=== PATIENT | male | born 1965 | race Caucasian/White ===

== ENCOUNTER 2024-06-29 18:59 | Inpatient (IN) | payer OTHER ==
[2024-06-29] MEDS ORDERED: KETOROLAC 15 MG/ML 1 ML VIAL ONE (20:50)
[2024-06-29] MEDS ORDERED: SODIUM CHLORIDE 0.9% 1,000 ML BAG ONE (20:55)
[2024-06-30] MEDS ORDERED: HYDROmorphone 1 MG/ML 1 ML SYRINGE ONE (14:28)
[2024-06-30] MEDS ORDERED: ONDANSETRON 4 MG/2 ML VIAL ONE (14:28)
[2024-06-30] MEDS ORDERED: SODIUM CHLORIDE 0.9% 1,000 ML BAG ONE (14:35)
[2024-06-30] MEDS ORDERED: NICOTINE 21MG/24HR PATCH TRANSDERM ONE (15:42)
[2024-06-30] MEDS ORDERED: AMPICILLIN-SULBACTAM 3 GM VIAL ONE (19:50)
[2024-06-30] MEDS ORDERED: SODIUM CHLORIDE 0.9% 100 ML BAG IV ONE (19:50)
[2024-07-01] MEDS ORDERED: AMPICILLIN-SULBACTAM 3 GM VIAL ONE ×3 (03:59→20:52)
[2024-07-01] MEDS ORDERED: MORPHINE SULFATE 4 MG/ML SYRINGE ONE ×2 (06:27→18:10)
[2024-07-01] MEDS ORDERED: NICOTINE 21MG/24HR PATCH TRANSDERM ONE (09:25)
[2024-07-01] MEDS ORDERED: PANTOPRAZOLE 40 MG/10 ML VIAL ONE (09:46)
[2024-07-01] MEDS ORDERED: metroNIDAZOLE-NS PMX 100 ML ONE ×2 (15:53→20:53)
[2024-07-02] MEDS ORDERED: metroNIDAZOLE-NS PMX 100 ML ONE (05:05)
[2024-07-02] MEDS ORDERED: AMPICILLIN-SULBACTAM 3 GM VIAL ONE (08:45)
[2024-07-02] MEDS ORDERED: PANTOPRAZOLE 40 MG/10 ML VIAL ONE (08:45)
[2024-07-02] MEDS ORDERED: NICOTINE 21MG/24HR PATCH TRANSDERM ONE (08:45)
--- NOTE | 2024-07-21 13:45 | CT ---
EXAM: CT abdomen pelvis with IV contrast. DATE OF EXAM: 06/30/24 Reason for study: PUNCTURE IN COLON LEAKING INTO ABDOMEN PER PATIENT, PATIENT HAD RENAL STONE CT YEST ERDAY, ABD PAIN DLP: 875.9 [id number] COMPARISON: None, please note PACS downtime occurred during the radiologist interpretation of these i mages with limited priors/reports.. TECHNIQUE: CT abdomen pelvis with IV contrast. with axial imaging and sagittal and coronal reformats following t he administration of 100 cc of Isovue-300 IV contrast material.. One or more CT dose reduction strate gies were utilized during this examination. Total DLP administered was 875.9 mGycm. FINDINGS: LOWER CHEST: Unremarkable ABDOMEN LIVER: Unremarkable GALLBLADDER AND BILE DUCTS: Unremarkable. PANCREAS: Unremarkable. SPLEEN: Unremarkable. ADRENAL GLANDS: Unremarkable. KIDNEYS AND URETERS: No evidence of hydronephrosis or renal calculus. The ureters are unremarkable. PELVIS BLADDER: Unremarkable REPRODUCTIVE: Unremarkable. ABDOMEN & PELVIS STOMACH AND BOWEL: Fat stranding changes are seen on the sigmoid colon with circumferential wall thic kening measuring up to 12 mm. Multiple scattered colonic diverticula in this region. There is a pocke t of gas outside the colon measuring up to 30 x 15 x 17 mm. With adjacent inflammation changes. PERITONEUM: No evidence of pneumoperitoneum or free fluid. VASCULATURE: Mild atherosclerotic calcifications are present throughout the abdominal aorta and its b ranches. MUSCULOSKELETAL: No acute osseous abnormalities LYMPH NODES: No gross evidence for lymphadenopathy. SOFT TISSUE/ABDOMINAL WALL: Unremarkable IMPRESSION: Acute diverticulitis/colitis with perforation with pocket of gas outside the colon measuring up to 30 x 15 x 17 mm.
--- NOTE | 2024-08-01 09:06 | CT ---
EXAM: CT Abdomen and Pelvis Without Intravenous Contrast CLINICAL HISTORY: lower abdominal pain TECHNIQUE: Axial computed tomography images of the abdomen and pelvis without intravenous contrast. CTDI is 8.1 mGy and DLP is 479.6 mGy-cm. This CT exam was performed using one or more of the following dose reduction techniques: automated exposure control, adjustment of the mA and/or kV according to patient size, and/or use of iterative reconstruction technique. COMPARISON: No relevant prior studies available. FINDINGS: Lung bases:Unremarkable. No mass. No consolidation. ABDOMEN: Liver:Unremarkable. Gallbladder and bile ducts:Unremarkable. No calcified stones. No ductal dilation. Pancreas:Unremarkable. No ductal dilation. Spleen:Unremarkable. No splenomegaly. Adrenals:Unremarkable. No mass. Kidneys and ureters:Unremarkable. No obstructing stones. No hydronephrosis. Stomach and bowel: Perforated colitis of the sigmoid colon, with contained air collection measuring approximately4.3 x 4.0 cm. Surgical evaluation recommended. No obstruction. PELVIS: Appendix:No findings to suggest acute appendicitis. Bladder:Unremarkable. No stones. Reproductive:Unremarkable as visualized. ABDOMEN and PELVIS: Intraperitoneal space:Unremarkable. No free air. No significant fluid collection. Bones/joints:Degenerative changes of the spine. No acute fracture. No dislocation. Soft tissues:Unremarkable. Vasculature:Atherosclerotic changes of the aorta. No abdominal aortic aneurysm. Lymph nodes:Unremarkable. No enlarged lymph nodes. IMPRESSION: Perforated colitis of the sigmoid colon, with contained air collection measuring approximately 4.3 x 4.0 cm. Surgical evaluation recommended. Radiologist: Jonathan Putnam MD Electronically Signed: 06/30/24 00:41 Study ready at 22:43 and initial results transmitted at 00:41 Results also transmitted to Film Room, Film Room @ [phone] (Fax) Communications: Communications: Clear Time Type Notes 06/30/24 00:44 Call Doctor Regarding Other, called Dr. Camarena on 06/30 00:44 (-04:00) RENETTA
== END 2024-07-02 14:24 | disposition home or self-care (01) | DRG 244 ==
LOC: EC 18:59 → 4SSUR 20:21 → UNDOADMIN 20:21 → DISRECOVER 21:21 → EC 06-30 00:55 → UNDODISIN 07-02 14:24
PROVIDERS: ADMIT Surgery; ATTEND Surgery
DX: K57.20 Diverticulitis of large intestine with perforation and abscess without bleeding (principal); F17.210 Nicotine dependence, cigarettes, uncomplicated; Z87.19 Personal history of other diseases of the digestive system; Z90.49 Acquired absence of other specified parts of digestive tract
CPT/HCPCS: 80053; 81003; 83605; 83690; 83735; 84100; 84484; 85025; 93005

== ENCOUNTER → 2024-07-28 | Outpatient (CLI) | payer OTHER ==
--- NOTE | 2024-07-28 12:40 | CT ---
EXAMINATION TYPE: CT abdomen pelvis w con DATE OF EXAM: 07/28/2024 COMPARISON: 06/30/2024 HISTORY: Hx diverticulitis CT DLP: 1182 mGycm Automated exposure control for dose reduction was used. TECHNIQUE: Helical acquisition of images was performed from the lung bases through the pelvis. CONTRAST: Performed with Oral Contrast and with IV Contrast, patient injected with 100 mL of Isovue 300. FINDINGS: The lung bases are clear. The gallbladder is normal without distention, wall thickening, pericholecystic fluid or gallstones. T here is no biliary ductal dilatation. There is no focal mass or organomegaly involving the liver, pancreas, spleen or adrenal glands. There is no solid renal mass or hydronephrosis and there is homogeneous contrast enhancement of the r enal parenchyma. The caliber the abdominal aorta is normal is no retroperitoneal adenopathy or hemorr юлия. There is moderate diverticulosis of the descending and sigmoid colon. There is sigmoid bowel wall thi ckening and hazy density in the pericolic fat. The findings are consistent with acute on chronic chol ecystitis. There has been no significant interval change compared to previous. There is no free intraperitoneal air or fluid. No pelvic mass, free fluid, abscess or adenopathy. The osseous structures and soft tissues are intact. IMPRESSION: Acute sigmoid diverticulitis as described above. There is no bowel obstruction, abscess, free intrape ritoneal air or fluid.
== END | disposition home or self-care (01) ==
LOC: RADCTMAIN 09:54
PROVIDERS: ATTEND Surgery
DX: K57.32 Diverticulitis of large intestine without perforation or abscess without bleeding (principal)
CPT/HCPCS: 74177

== ENCOUNTER 2024-08-25 16:23 | Inpatient (IN) | payer OTHER ==
--- NOTE | 2024-08-25 16:52 | ED ---
General Adult HPI - General Chief complaint: Recheck/Abnormal Lab/Rx Stated complaint: colon rupture Time Seen by Provider: 08/25/24 16:32 Source: patient Mode of arrival: ambulatory Limitations: no limitations - History of Present Illness Initial comments: Macro dictation was produced using [employer] dictation software. please excuse any grammatical, word or spelling errors. Chief Complaint: 59-year-old male with 1 day of abdominal pain History of Present Illness: Patient is 51-year-old male presents emergency department 1 day history of acute abdominal pain. Patient had been diagnosed with diverticulitis complicated by rupture and was admitted about a month ago states that the pain never really went away but really started to get bad today. Denies any fever. Pain is to his lower abdomen nonradiating. The ROS documented in this emergency department record has been reviewed and confirmed by me. Those systems with pertinent positive or negative responses have been documented in the HPI. All other systems are other negative and/or noncontributory. - Related Data Allergies Allergy/AdvReac Type Severity Reaction Status Date / Time No Known Allergies Allergy Verified 08/25/24 19:30 Review of Systems ROS Statement: Those systems with pertinent positive or pertinent negative responses have been documented in the HPI. ROS Other: All systems not noted in ROS Statement are negative. Past Medical History Additional Past Medical History / Comment(s): colon rupture. History of Any Multi-Drug Resistant Organisms: None Reported Past Surgical History: No Surgical Hx Reported Additional Past Surgical History / Comment(s): colon rupture Past Psychological History: No Psychological Hx Reported Smoking Status: Current every day smoker Past Alcohol Use History: None Reported Past Drug Use History: Marijuana General Exam - General Exam Comments Initial Comments: PHYSICAL EXAM: General Impression: Alert and oriented x3, distress secondary to pain HEENT: Normocephalic atraumatic, extra-ocular movements intact, pupils equal and reactive to light bilaterally, mucous membranes moist. Cardiovascular: Heart regular rate and rhythm Chest: Able to complete full sentences, no retractions, no tachypnea Abdomen: abdomen soft, exquisite palpatory tenderness to the lower abdomen non- distended, no organomegaly Musculoskeletal: Pulses present and equal in all extremities, no peripheral edema Motor: no focal deficits noted Neurological: CN II-XII grossly intact, no focal motor or sensory deficits noted Skin: Intact with no visualized rashes Psych: Normal affect and mood Limitations: no limitations Course Vital Signs 08/25/24 08/25/24 08/25/24 16:26 16:57 18:18 Temperature 97.4 F L Pulse Rate 109 H 94 84 Respiratory 20 18 18 Rate Blood Pressure 112/74 115/81 105/59 O2 Sat by Pulse 98 97 94 L Oximetry Medical Decision Making - Medical Decision Making Was pt. sent in by a medical professional or institution (, PA, DIRECTOR OF QUALITY CONTROL, urgent care, hospital, or correction...) When possible be specific @ -No Did you speak to anyone other than the patient for history (EMS, parent, family, police, friend...)? What history was obtained from this source @ - at the bedside as described above Did you review nursing and triage notes (agree or disagree)? Why? @ -I reviewed and agree with nursing and triage notes Were old charts reviewed (outside hosp., previous admission, EMS record, old EKG, old radiological studies, urgent care reports/EKG's, correction records)? Report findings @ -No old charts were reviewed Differential Diagnosis (chest pain, altered mental status, abdominal pain women, abdominal pain men, vaginal bleeding, musculoskeletal, weakness, fever, dyspnea, syncope, headache, dizziness, GI bleed, back pain, seizure, CVA, palpatations, mental health)? @ -Differential Abdominal Pain Men: Appendicitis, cholecystitis, diverticulosis, ischemic bowel, pancreatitis, hepatitis, UTI, gastroenteritis, AAA, incarcerated hernia, bowel obstruction, constipation, inflammatory bowel, hepatitis, peptic ulcer disease, splenic infarction, perforated viscus, testicular torsion, this is not meant to be an all-inclusive list EKG interpreted by me (3pts min.). @ -None done X-rays interpreted by me (1pt min.). @ -None done CT interpreted by me (1pt min.). @ -CT shows diverticulitis with phlegmon U/S interpreted by me (1pt. min.). @ -None done What testing was considered but not performed or refused? (CT, X-rays, U/S, labs)? Why? @ -None What meds were considered but not given or refused? Why? @ -None Was smoking cessation discussed for >3mins.? @ -No Were there social determinants of health that impacted care today? How? (Homelessness, low income, unemployed, alcoholism, drug addiction, transportation, low edu. Level, literacy, decrease access to med. care, assisted, rehab)? @ -No Was there de-escalation of care discussed even if they declined (Discuss DNR or withdrawal of care, Hospice)? DNR status @ -No What co-morbidities impacted this encounter? (DM, HTN, Smoking, COPD, CAD, Cancer, CVA, ARF, Chemo, Hep., AIDS, mental health diagnosis, sleep apnea, morbid obesity)? @ -None Was patient admitted / discharged? Hospital course, mention meds given and route, prescriptions, significant lab abnormalities, going to OR and other perti nent info. @ -51-year-old male recent diagnosis of acute diverticulitis presents to the ER for severe abdominal pain. Vital signs upon arrival are within acceptable limits. Patient distress at the bedside with exquisitely tender abdomen to palpation. Laboratory evaluation is unremarkable. CT shows diverticulitis complicated with phlegmon contained rupture patient given analgesics with slight improvement of symptoms however he still symptomatic. Disposition options were discussed. Patient agreeable with admission. Case discussed with who is willing to accept patient's care. Did you discuss the management of the patient with other professionals (professionals i.e. , PA, DIRECTOR OF QUALITY CONTROL, lab, RT, psych nurse, social welfare administrator, mannequin maker, teacher, human resources officer, case managers)? Give summary @ -See above Was critical care preformed (if so, how long)? @ -No Undiagnosed new problem with uncertain prognosis? @ -No Drug Therapy requiring intensive monitoring for toxicity (Heparin, Nitro, Insulin, Cardizem)? @ -No Were any procedures done? @ -No Diagnosis/symptom? Acute, or Chronic, or Acute on Chronic? Uncomplicated (without systemic symptoms) or Complicated (systemic symptoms)? @ -Acute on chronic complicated diverticulitis Side effects of treatment? @ -No Exacerbation, Progression, or Severe Exacerbation? @ -No Poses a threat to life or bodily function? How? (Chest pain, [place], [place], pneumonia, PE, COPD, DKA, ARF, appy, cholecystitis, CVA, Diverticulitis, Homicidal, Suicida l, threat to staff... and all critical care pts) @ -yes - Lab Data Result diagrams: 08/25/24 17:05 08/25/24 17:05 Lab Results 08/25/24 08/25/24 08/25/24 Range/Units 17:05 17:05 17:05 WBC 11.4 H (3.8-10.6) k/uL RBC 4.79 (4.30-5.90) m/uL Hgb 13.7 (13.0-17.5) gm/dL Hct 43.1 (39.0-53.0) % MCV 89.9 (80.0-100.0) fL MCH 28.6 (25.0-35.0) pg MCHC 31.8 (31.0-37.0) g/dL RDW 13.6 (11.5-15.5) % Plt Count 283 (150-450) k/uL MPV 7.2 Neutrophils % 80 % Lymphocytes % 14 % Monocytes % 4 % Eosinophils % 1 % Basophils % 1 % Neutrophils # 9.2 H (1.3-7.7) k/uL Lymphocytes # 1.6 (1.0-4.8) k/uL Monocytes # 0.4 (0-1.0) k/uL Eosinophils # 0.1 (0-0.7) k/uL Basophils # 0.1 (0-0.2) k/uL PT 11.4 (10.0-12.5) sec INR 1.0 (<1.2) APTT 26.2 (22.0-30.0) sec Sodium 136 L (137-145) mmol/L Potassium 3.9 (3.5-5.1) mmol/L Chloride 108 H (98-107) mmol/L Carbon Dioxide 22 (22-30) mmol/L Anion Gap 6 mmol/L BUN 14 (9-20) mg/dL Creatinine 0.72 (0.66-1.25) mg/dL Est GFR (CKD-EPI)AfAm >90 (>60 ml/min/1.73 sqM) Est GFR (CKD-EPI)NonAf >90 (>60 ml/min/1.73 sqM) Glucose 209 H (74-99) mg/dL Calcium 9.8 (8.4-10.2) mg/dL Total Bilirubin 0.5 (0.2-1.3) mg/dL AST 18 (17-59) U/L ALT 15 (4-49) U/L Alkaline Phosphatase 79 (38-126) U/L Total Protein 6.4 (6.3-8.2) g/dL Albumin 3.8 (3.5-5.0) g/dL Lipase 46 (23-300) U/L Disposition Clinical Impression: Diverticulitis Disposition: ADMITTED IP TO THIS [facility] Condition: Fair Referrals: Wade Krueger MD [Primary Care Provider] - 1-2 days Decision Time: 19:33
[2024-08-25] MEDS: SODIUM CHLORIDE 0.9% 1,000 ML IV STA (17:05)
[2024-08-25] MEDS: HYDROmorphone 1 MG/ML 1 ML SYRINGE IVP STA (17:06)
[2024-08-25] MEDS: NICOTINE 21MG/24HR PATCH TRANSDERM STA (17:07)
[2024-08-25 17:18] LABS: Basophils # (A) 0.1 k/uL (0-0.2); Basophils % (A) 1 %; Eosinophils # (A) 0.1 k/uL (0-0.7); Eosinophils % (A) 1 %; HCT 43.1 % (39.0-53.0); HGB 13.7 gm/dL (13.0-17.5); Lymphocytes # (A) 1.6 k/uL (1.0-4.8); Lymphocytes % (A) 14 %; MCH 28.6 pg (25.0-35.0); MCHC 31.8 g/dL (31.0-37.0); MCV 89.9 fL (80.0-100.0); Mean Platelet Volume 7.2; Monocytes # (A) 0.4 k/uL (0-1.0); Monocytes % (A) 4 %; Neutrophils # (A) 9.2 k/uL (1.3-7.7); Neutrophils % (A) 80 %; Platelet Count 283 k/uL (150-450); RBC 4.79 m/uL (4.30-5.90); RDW 13.6 % (11.5-15.5); WBC 11.4 k/uL (3.8-10.6)
[2024-08-25 17:37] LABS: ALT 15 U/L (4-49); AST 18 U/L (17-59); African American GFR (CKD) >90 (>60 ml/min/1.73 sqM); Albumin 3.8 g/dL (3.5-5.0); Alkaline Phosphatase 79 U/L (38-126); Anion Gap 6 mmol/L; Blood Urea Nitrogen 14 mg/dL (9-20); Calcium 9.8 mg/dL (8.4-10.2); Carbon Dioxide 22 mmol/L (22-30); Chloride 108 mmol/L (98-107); Glucose 209 mg/dL (74-99); Lipase 46 U/L (23-300); Non-African American GFR(CKD) >90 (>60 ml/min/1.73 sqM); Potassium 3.9 mmol/L (3.5-5.1); Sodium 136 mmol/L (137-145); Total Bilirubin 0.5 mg/dL (0.2-1.3); Total Protein 6.4 g/dL (6.3-8.2)
[2024-08-25 17:43] LABS: Partial Thromboplastin Time 26.2 sec (22.0-30.0); Prothrombin Time 11.4 sec (10.0-12.5)
--- NOTE | 2024-08-25 17:47 | CT ---
EXAMINATION TYPE: CT abdomen pelvis w con DATE OF EXAM: 08/25/2024 COMPARISON: 07/28/2024 HISTORY: Lower abdominal pain, colon rupture x [address] DLP: 762.1 mGycm CONTRAST: CT scan of the abdomen and pelvis is performed without Oral Contrast and with IV Contrast, patient in jected with 100 cc mL of Isovue 300. FINDINGS: LUNG BASES-: No visible nodule. No infiltrate. LIVER/GB: No calcified gallstones. No space occupying hepatic lesion. Biliary tree is of normal ca liber. PANCREAS: No inflammation. No distinct mass. SPLEEN: No splenic enlargement. No lesion seen. ADRENALS: No nodule. No thickening. KIDNEYS/BLADDER: No hydronephrosis. No nephrolithiasis. Renal cystic changes. Urinary bladder gross ly unremarkable. BOWEL: Normal appendix. Again noted are changes of acute diverticulitis of the sigmoid colon with con tained rupture and associated inflammatory change and phlegmon. No evidence for drainable abscess at this time. The remainder of the colon is unremarkable as is the small bowel. No evidence of pneumoper itoneum. GENITAL ORGANS: No gross abnormality. LYMPH NODES: No greater than 1cm abdominal or pelvic lymph nodes are appreciated. AORTA: No significant abnormality. OSSEOUS STRUCTURES: No significant abnormality is seen. OTHER: No significant additional abnormality is seen. IMPRESSION: 1. Again noted are changes of acute diverticulitis of the sigmoid colon with contained rupture and as sociated inflammatory change and phlegmon. No evidence for drainable abscess at this time. [facility], , 08/25/2024 5:44 PM
[2024-08-25] MEDS ORDERED: NALOXONE 0.4 MG/ML 1 ML VIAL IV PRN (19:29)
[2024-08-25] MEDS ORDERED: ONDANSETRON 4 MG/2 ML VIAL IVP PRN (19:29)
[2024-08-25] MEDS ORDERED: PIPERACILLIN-TAZOBACTAM 3.375 GM in SODIUM CHLORIDE 0.9% 100 ML IVPB SCH (19:30)
[2024-08-25] MEDS: SODIUM CHLORIDE 0.9% 1,000 ML IV SCH (19:37)
[2024-08-25] MEDS: PIPERACILLIN-TAZOBACTAM 3.375 GM in SODIUM CHLORIDE 0.9% 100 ML IVPB SCH ×2 (19:40→19:48)
[2024-08-25] MEDS: HYDROmorphone 1 MG/ML 1 ML SYRINGE IVP PRN (21:21)
[2024-08-26] MEDS: NICOTINE 21MG/24HR PATCH TRANSDERM SCH (09:54)
--- NOTE | 2024-08-26 11:23 | P.GSHP ---
History of Present Illness H&P Date: 08/26/24 CHIEF COMPLAINT: Abdominal pain HISTORY OF PRESENT ILLNESS: This is a 59-year-old male with a known history of perforated diverticulitis that began in June of this year. Patient reports he has been on oral antibiotics for about a month and a half. Yesterday morning he had increased pain in the left lower quadrant. Patient reports pain is across the whole lower abdomen but more in the left lower quadrant. He denies any nausea or vomiting. Denies any fever chills or sweats. He reports having bowel movements. Denies any prior abdominal surgery. He is a heavy smoker he drinks smokes about [address] scan during this admission had reported diverticulitis with contained rupture and phlegmon. No abscess present. Patient has been admitted to surgical service. Patient has been following up with Dr. Krueger outpatient. PAST MEDICAL HISTORY: Ruptured diverticulitis PAST SURGICAL HISTORY: none MEDICATIONS: See below ALLERGIES: See below SOCIAL HISTORY: No illicit drug use. Nicotine dependence REVIEW OF SYSTEMS: CONSTITUTIONAL: Denies fever or chills. HEENT: Denies blurred vision, vision changes, or eye pain. Denies hemoptysis CARDIOVASCULAR: Denies chest pain or pressure. RESPIRATORY: No shortness of breath. GASTROINTESTINAL: See HPI for pertinent findings HEMATOLOGIC: Denies bleeding disorders. GENITOURINARY: Denies any blood in urine or increased urinary frequency. SKIN: Denies pruitis. Denies rash. PHYSICAL EXAM: VITAL SIGNS: Reviewed GENERAL: Well-developed in no acute distress. HEENT: No sclera icterus. Extraocular movements grossly intact. Moist buccal mucosa. Head is atraumatic, normocephalic. No nasal drainage. ABDOMEN: Soft. Nondistended. Very tender across the lower abdomen and especially the left lower quadrant with palpation. No guarding noted NEUROLOGIC: Alert and oriented. Cranial nerves II through XII grossly intact. LABORATORY DATA: WBC 11.4 Hgb 13.7 platelets 283 INR 1.0 Sodium 136 potassium 3.9 creatinine 0.72 IMAGING: CT scan abdomen pelvis reports again noted changes of acute diverticulitis of the sigmoid colon with contained rupture and associated inflammatory changes and phlegmon. No evidence for drainable abscess. ASSESSMENT: 1. Acute sigmoid diverticulitis with contained rupture and phlegmon PLAN: -Further recommendations forthcoming per surgeon -Continue IV antibiotics -Keep patient n.p.o. -Continue IV fluids -Repeat CBC now and in a.m. Physician Processing Associate note has been reviewed by physician. Signing provider agrees with the documented findings, assessment, and plan of care. I have personally seen and examined the patient, reviewed the NURSE ORTHOPEDIC /PAs history, exam and MDM and agree with the assessment and plan as written. Based on total visit time, I have performed more than 50% of the visit. As above: Patient with history of diverticulitis requiring prior admission. Patient stayed for 2 days at that time. Patient has had persistent intermittent complaints since discharge. Has been on antibiotics twice since his discharge although the last time he was unable to fill some of his prescription. Patient describes lower mid abdominal pain. CAT scan reviewed with radiology. Patient has had some weight loss and his and I were trying to get his colonoscopy performed sooner so that we could exclude any evidence of malignancy. CAT scan shows a phlegmon with a few small air bubbles adjacent to the sigmoid colon. This does not appear suspicious for neoplasm currently. Options discussed with patient in detail. Options of exploratory laparotomy with sigmoid resection and end colostomy versus IV antibiotic therapy with control of acute infectious process followed by outpatient colonoscopy and subsequent referral to colorectal surgery for possible laparoscopic resection discussed. Patient agrees he would like to hold off on surgery unless necessary in the urgent setting. Continue antibiotics. Consult infectious disease. May require home IV antibiotics. Will reassess tomorrow. Past Medical History Additional Past Medical History / Comment(s): colon rupture- treated w/ abx. diverticulitis since 07/16. Meningitis as 1976 History of Any Multi-Drug Resistant Organisms: None Reported Past Surgical History: No Surgical Hx Reported Additional Past Surgical History / Comment(s): colon rupture Past Anesthesia/Blood Transfusion Reactions: No Reported Reaction Past Psychological History: No Psychological Hx Reported Smoking Status: Current every day smoker Past Alcohol Use History: None Reported Past Drug Use History: Marijuana Medications and Allergies Home Medications Medication Instructions Recorded Confirmed Type Levofloxacin [Levaquin] 500 mg PO DIRECTED 08/25/24 08/25/24 History metroNIDAZOLE [Flagyl] 500 mg PO TID 08/25/24 08/25/24 History Allergies Allergy/AdvReac Type Severity Reaction Status Date / Time No Known Allergies Allergy Verified 08/25/24 19:30 Surgical - Exam Vital Signs Temp Pulse Resp BP Pulse Ox 97.4 F L 109 H 20 112/74 98 10/03/24 16:26 08/25/24 16:26 08/25/24 16:26 08/25/24 16:26 08/25/24 16:26 Results - Labs 08/26/24 11:44 08/25/24 17:05 Abnormal Lab Results - Last 24 Hours (Table) 08/25/24 08/25/24 Range/Units 17:05 17:05 WBC 11.4 H (3.8-10.6) k/uL Neutrophils # 9.2 H (1.3-7.7) k/uL Sodium 136 L (137-145) mmol/L Chloride 108 H (98-107) mmol/L Glucose 209 H (74-99) mg/dL Diabetes panel 08/25/24 Range/Units 17:05 Sodium 136 L (137-145) mmol/L Potassium 3.9 (3.5-5.1) mmol/L Chloride 108 H (98-107) mmol/L Carbon Dioxide 22 (22-30) mmol/L BUN 14 (9-20) mg/dL Creatinine 0.72 (0.66-1.25) mg/dL Glucose 209 H (74-99) mg/dL Calcium 9.8 (8.4-10.2) mg/dL AST 18 (17-59) U/L ALT 15 (4-49) U/L Alkaline Phosphatase 79 (38-126) U/L Total Protein 6.4 (6.3-8.2) g/dL Albumin 3.8 (3.5-5.0) g/dL Calcium panel 08/25/24 Range/Units 17:05 Calcium 9.8 (8.4-10.2) mg/dL Albumin 3.8 (3.5-5.0) g/dL Pituitary panel 08/25/24 Range/Units 17:05 Sodium 136 L (137-145) mmol/L Potassium 3.9 (3.5-5.1) mmol/L Chloride 108 H (98-107) mmol/L Carbon Dioxide 22 (22-30) mmol/L BUN 14 (9-20) mg/dL Creatinine 0.72 (0.66-1.25) mg/dL Glucose 209 H (74-99) mg/dL Calcium 9.8 (8.4-10.2) mg/dL Adrenal panel 08/25/24 Range/Units 17:05 Sodium 136 L (137-145) mmol/L Potassium 3.9 (3.5-5.1) mmol/L Chloride 108 H (98-107) mmol/L Carbon Dioxide 22 (22-30) mmol/L BUN 14 (9-20) mg/dL Creatinine 0.72 (0.66-1.25) mg/dL Glucose 209 H (74-99) mg/dL Calcium 9.8 (8.4-10.2) mg/dL Total Bilirubin 0.5 (0.2-1.3) mg/dL AST 18 (17-59) U/L ALT 15 (4-49) U/L Alkaline Phosphatase 79 (38-126) U/L Total Protein 6.4 (6.3-8.2) g/dL Albumin 3.8 (3.5-5.0) g/dL
[2024-08-26] MEDS ORDERED: IPRATROPIUM-ALBUTEROL 3 ML NEB INHALATION PRN (11:31)
--- NOTE | 2024-08-26 11:31 | P.CONS ---
History of Present Illness - Reason for Consult Consult date: 08/26/24 Medical Management Requesting physician: Wade Krueger - History of Present Illness History of Presenting Illness: Patient is a very pleasant 59-year-old male with a past medical history of diverticulitis with history of colon rupture, nicotine dependence smoking 2 packs of cigarettes daily, and cannabis use. He presented to the emergency department with a chief complaint of abdominal pain. Patient recently diagnosed with diverticulitis complicated by rupture resulting in hospitalization 06/29/2024 through 07/02/2024. Patient reports he discharged home on prolonged antibiotic course and symptoms improved but never completely went away and over the past 24 hours has had significant pain/discomfort. He reports normal bowel function and denies having any melena or hematochezia and denies having any nausea, vomiting, or any other complaints. Upon arrival to our facility, patient underwent evaluation in the emergency department. Vital signs upon arrival show blood pressure 112/74, heart rate 109, respiratory rate 20, temp 97.4 F, and SpO2 of 98% on room air. Labs completed and reviewed. CBC showing leukocytosis with WBC count of 11.4. Coagulation profile normal findings. BMP showing hyperchloremia with chloride of 108 otherwise normal findings. Blood glucose was elevated at 209. Liver profile unremarkable. CT abdomen and pelvis completed showing changes of acute diverticulitis of the sigmoid colon with contained rupture and associated inflammatory changes and phlegmon, no evidence for drainable abscess at this time. Patient started on IV antibiotics with Zosyn and admitted under general surgery and we were consulted for medical management throughout hospitalization. Review of systems: Pertinent positives and negatives as discussed in HPI, a complete review of systems was performed and all other systems are negative. Physical exam: Vital signs reviewed and stable. General: Nontoxic, no distress and appears stated age. Derm: Skin warm and dry, normal coloration for ethnicity. Head: Atraumatic, normocephalic and symmetric. Eyes: EOM's intact, no lid lag, and anicteric sclera Mouth: no lip lesions, mucus membranes moist Cardiovascular: regular rate and rhythm with normal S1S2, no murmur, positive posterior tibial pulses bilaterally, and cap refill < 2 seconds. Lungs: Respirations even, regular, and unlabored on room air. Lungs slightly diminished, no rhonchi, no rales, no wheezing, and no accessory muscle usage. Abdominal: soft, diffuse abdominal tenderness throughout lower abdomen worse on left, no guarding, no appreciable organomegaly Ext: ROM intact. No gross muscle atrophy, no edema, no contractures Neuro: Speech clear, face symmetrical and CN II-XII grossly intact with no noted focal neuro deficits Psych: Alert and oriented to person, place, time, and situation. Appropriate and pleasant affect. Assessment and Plan of Care: Acute sigmoid diverticulitis with contained rupture and phlegmon, failed outpat ient treatment Leukocytosis, likely secondary to above Continue IV antibiotics with Zosyn 3.375 g every 8 hours Consult to infectious disease secondary to recurrent diverticulitis failing outpatient therapy. General Surgery following. NPO, diet to be advanced as recommended by general surgery team. IV fluid hydration with 0.9% normal saline at 130 cc/h. Zosyn 4 mg IVP every 8 hours as needed for nausea or vomiting. Dilaudid 1 mg IVP every 3 hours as needed for severe pain. Patient has received 4 mg of Dilaudid overnight. Hyperglycemia -Patient denies history of diabetes, will place patient on glycemic protocol and obtain a hemoglobin A1c. Nicotine dependence Recommend smoking cessation. Order placed for nicotine patch 21 mg daily. Data and imaging reviewed: As stated above in HPI Thank you for allowing us to participate in the care of this pleasant patient. Do not hesitate to contact us with questions. Someone can be reached from the [facility] hospitalist group all hours of the day at [phone] or via [employer] serve. Patient was seen independently by Nurse Practitioner. This document was prepared using [employer] dictation software. Please allow for er rors in steward/stewardess banquet while rare they do occur. I reviewed the documentation as provided by the RONALDO above, who is the original author of this note. I agree with the documented assessment and plan, with the following changes: none Past Medical History Additional Past Medical History / Comment(s): colon rupture- treated w/ abx. diverticulitis since 07/16. Meningitis as 1976 History of Any Multi-Drug Resistant Organisms: None Reported Past Surgical History: No Surgical Hx Reported Additional Past Surgical History / Comment(s): colon rupture Past Anesthesia/Blood Transfusion Reactions: No Reported Reaction Past Psychological History: No Psychological Hx Reported Smoking Status: Current every day smoker Past Alcohol Use History: None Reported Past Drug Use History: Marijuana Medications and Allergies Home Medications Medication Instructions Recorded Confirmed Type Levofloxacin [Levaquin] 500 mg PO DIRECTED 08/25/24 08/25/24 History metroNIDAZOLE [Flagyl] 500 mg PO TID 08/25/24 08/25/24 History Allergies Allergy/AdvReac Type Severity Reaction Status Date / Time No Known Allergies Allergy Verified 08/25/24 19:30 Physical Exam Osteopathic Statement: *. No significant issues noted on an osteopathic s tructural exam other than those noted in the History and Physical/Consult. Vitals: Vital Signs Temp Pulse Pulse Resp BP BP Pulse Ox 08/26/24 07:05 98.5 F 85 16 112/68 98 08/26/24 01:17 98.5 F 85 17 120/75 96 08/25/24 21:24 98.4 F 94 16 134/87 96 08/25/24 18:18 84 18 105/59 94 L 08/25/24 16:57 94 18 115/81 97 08/25/24 16:26 97.4 F L 109 H 20 112/74 98 Intake and Output 08/25/24 08/26/24 08/26/24 22:59 06:59 14:59 Other: # Voids 0 Weight 79.379 kg 79.379 kg Results CBC & Chem 7: 08/26/24 11:44 08/25/24 17:05 Labs: Abnormal Lab Results - Last 24 Hours (Table) 08/25/24 08/25/24 Range/Units 17:05 17:05 WBC 11.4 H (3.8-10.6) k/uL Neutrophils # 9.2 H (1.3-7.7) k/uL Sodium 136 L (137-145) mmol/L Chloride 108 H (98-107) mmol/L Glucose 209 H (74-99) mg/dL
[2024-08-26] MEDS: IPRATROPIUM-ALBUTEROL 3 ML NEB INHALATION SCH (11:44)
[2024-08-26 11:53] LABS: Basophils % (A) 1 %; Eosinophils # (A) 0.1 k/uL (0-0.7); Eosinophils % (A) 1 %; HGB 13.2 gm/dL (13.0-17.5); Lymphocytes % (A) 24 %; MCHC 32.1 g/dL (31.0-37.0); MCV 90.2 fL (80.0-100.0); Mean Platelet Volume 7.2; Monocytes # (A) 0.5 k/uL (0-1.0); Monocytes % (A) 6 %; Neutrophils # (A) 5.7 k/uL (1.3-7.7); Neutrophils % (A) 67 %; Platelet Count 260 k/uL (150-450); RBC 4.54 m/uL (4.30-5.90); RDW 13.5 % (11.5-15.5); WBC 8.5 k/uL (3.8-10.6)
[2024-08-26 13:49] VITALS: BMI 28.2
[2024-08-26] MEDS ORDERED: DEXTROSE 50% SYRINGE 50 ML IVP PRN ×2 (17:56)
[2024-08-26 20:55] LABS: Glucose,Whole Blood 102 mg/dL (70-110)
--- NOTE | 2024-08-26 22:57 | P.CONS ---
History of Present Illness - Reason for Consult Consult date: 08/26/24 Recurrent diverticulitis Requesting physician: Wade Krueger - Chief Complaint Abdominal pain x 1 day - History of Present Illness Patient is a 59-year-old male with a past medical history significant for meningitis back in 1975 he was recently admitted to [facility] in June 2024 for episode of diverticulitis that responded to the medical treatment patient now presenting back to the hospital yesterday afternoon for evaluation of abdominal pain that apparently has been getting worse for the last 1 day before presentation to the hospital patient describing the pain mostly the lower abdominal area describing it to be sharp almost 10 out of 10 in severity with associated nausea but no vomiting and denies having any constipation or diarrhea patient did have some chills on presentation to the hospital the patient was afebrile and no fever have been called subsequently patient was not tachycardic hypotensive or hypoxic he did have a white count of 11.4 with a left shift creatinine 0.72 liver enzymes are normal patient did have a CT of abdominal pelvis we did shows features of acute diverticulitis of the sigmoid colon with contained rupture and associated inflammatory change and phlegmon no evidence for drainable abscess patient was started on Zosyn infectious he was consulted for further management of antibiotic therapy Review of Systems Positive point and negatives has been mentioned in the HPI, complete review of systems was performed and all other systems are negative Past Medical History Additional Past Medical History / Comment(s): colon rupture- treated w/ abx. diverticulitis since 07/16. Meningitis as 1975 History of Any Multi-Drug Resistant Organisms: None Reported Past Surgical History: No Surgical Hx Reported Additional Past Surgical History / Comment(s): colon rupture Past Anesthesia/Blood Transfusion Reactions: No Reported Reaction Past Psychological History: No Psychological Hx Reported Smoking Status: Current every day smoker Past Alcohol Use History: None Reported Past Drug Use History: Marijuana Medications and Allergies Home Medications Medication Instructions Recorded Confirmed Type Levofloxacin [Levaquin] 500 mg PO DIRECTED 08/25/24 08/25/24 History metroNIDAZOLE [Flagyl] 500 mg PO TID 08/25/24 08/25/24 History Allergies Allergy/AdvReac Type Severity Reaction Status Date / Time No Known Allergies Allergy Verified 08/25/24 19:30 Physical Exam Vitals: Vital Signs Temp Pulse Pulse Resp BP BP Pulse Ox 08/26/24 07:05 98.5 F 85 16 112/68 98 08/26/24 01:17 98.5 F 85 17 120/75 96 08/25/24 21:24 98.4 F 94 16 134/87 96 08/25/24 18:18 84 18 105/59 94 L 08/25/24 16:57 94 18 115/81 97 08/25/24 16:26 97.4 F L 109 H 20 112/74 98 Intake and Output 08/25/24 08/26/24 08/26/24 22:59 06:59 14:59 Other: # Voids 0 Weight 79.379 kg 79.379 kg GENERAL DESCRIPTION: Middle-aged male lying in bed, no distress. No tachypnea or accessory muscle of respiration use. HEENT: Shows Pallor , no scleral icterus. Oral mucous membrane is dry. No pharyngeal erythema or thrush NECK: Trachea central, no thyromegaly. LUNGS: Unlabored breathing. Clear to auscultation anteriorly. No wheeze or crackle. HEART: S1, S2, regular rate and rhythm. No loud murmur ABDOMEN: Soft, lower quadrant tenderness no guarding or rigidity EXTREMITIES: No edema of feet. SKIN: No rash, no masses palpable. NEUROLOGICAL: The patient is awake, alert, oriented x3, mood and affect normal. Results CBC & Chem 7: 08/26/24 11:44 08/25/24 17:05 Labs: Abnormal Lab Results - Last 24 Hours (Table) 08/25/24 08/25/24 Range/Units 17:05 17:05 WBC 11.4 H (3.8-10.6) k/uL Neutrophils # 9.2 H (1.3-7.7) k/uL Sodium 136 L (137-145) mmol/L Chloride 108 H (98-107) mmol/L Glucose 209 H (74-99) mg/dL Assessment and Plan (1) Perforation of sigmoid colon due to diverticulitis Current Visit: Yes Status: Acute Code(s): K57.20 - DVTRCLI OF LG INT W PERFORATION AND ABSCESS W/O BLEEDING SNOMED Code(s): 1640245049976785 (2) Diverticulitis Current Visit: Yes Status: Acute Code(s): K57.92 - DVTRCLI OF INTEST, PART UNSP, W/O PERF OR ABSCESS W/O BLEED SNOMED Code(s): 849092425 Plan: 1patient presented to hospital with lower abdominal pain this being his second episode of admission to the hospital within 2 months concerning for recurrent diverticulitis with contained perforation and peridiverticular phlegmon but no drainable abscess we will need to cover for the enteric gram-negative both aerobes and anaerobes 2-patient to continue with Zosyn 3.375 g every 8 hours, along with bowel rest 3-patient may need IV antibiotic on discharge depending upon his clinical response We will follow on clinical condition and cultures to further adjust medication if needed Thank you for this consultation we will follow the patient along with you Dictation was produced using [employer] dictation software. please excuse any grammatical, word or spelling errors. Time with Patient: Greater than 30
[2024-08-27 05:24] LABS: Basophils % (A) 1 %; Eosinophils # (A) 0.1 k/uL (0-0.7); Eosinophils % (A) 2 %; HCT 36.2 % (39.0-53.0); HGB 12.1 gm/dL (13.0-17.5); Lymphocytes # (A) 1.9 k/uL (1.0-4.8); Lymphocytes % (A) 26 %; MCHC 33.5 g/dL (31.0-37.0); MCV 89.4 fL (80.0-100.0); Mean Platelet Volume 7.7; Monocytes # (A) 0.4 k/uL (0-1.0); Monocytes % (A) 5 %; Neutrophils # (A) 4.8 k/uL (1.3-7.7); Neutrophils % (A) 65 %; Platelet Count 245 k/uL (150-450); RBC 4.05 m/uL (4.30-5.90); RDW 13.9 % (11.5-15.5); WBC 7.3 k/uL (3.8-10.6)
[2024-08-27 06:14] LABS: Glucose,Whole Blood 93 mg/dL (70-110)
--- NOTE | 2024-08-27 09:51 | P.PN ---
Subjective Progress Note Date: 08/27/24 Principal diagnosis: Recurrent diverticulitis Patient says his pain is gone today. Was quite severe yesterday. No nausea or vomiting. Passing flatus. No bowel movement. Patient is afebrile. White blood cell count normal now. Objective - Vital Signs Vital signs: Vital Signs Temp 98.1 F 08/27/24 06:56 Pulse 88 08/27/24 08:41 Resp 16 08/27/24 06:56 BP 119/73 08/27/24 06:56 Pulse Ox 96 08/27/24 06:56 FiO2 Intake & Output 08/26/24 08/27/24 08/27/24 18:59 06:59 18:59 Weight 79.379 kg Other: Voiding Method Toilet # Voids 3 1 - Exam Abdomen: Soft, nondistended, mild lower abdominal tenderness - Labs CBC & Chem 7: 08/27/24 05:01 08/25/24 17:05 Labs: Abnormal Lab Results - Last 24 Hours (Table) 08/27/24 Range/Units 05:01 RBC 4.05 L (4.30-5.90) m/uL Hgb 12.1 L (13.0-17.5) gm/dL Hct 36.2 L (39.0-53.0) % Assessment and Plan (1) Diverticulitis Narrative/Plan: 59-year-old male with diverticulitis and pelvic phlegmon. Continue IV antibiotics. Anticipate need for IV antibiotics postdischarge. Will follow. Current Visit: Yes Status: Acute Code(s): K57.92 - DVTRCLI OF INTEST, PART UNSP, W/O PERF OR ABSCESS W/O BLEED SNOMED Code(s): 505288133
[2024-08-27 10:54] LABS: ALT 9 U/L (10-49); AST 9 U/L (14-35); Albumin 3.3 g/dL (3.8-4.9); Albumin/Globulin Ratio 1.57 Ratio (1.60-3.17); Alkaline Phosphatase 71 U/L (41-126); Blood Urea Nitrogen 9.1 mg/dL (9.0-27.0); Calcium 8.4 mg/dL (8.7-10.3); Carbon Dioxide 23.4 mmol/L (21.6-31.8); Chloride 106 mmol/L (96-109); Globulin 2.1 g/dL (1.6-3.3); Glucose 92 mg/dL (70-110); Magnesium 1.9 mg/dL (1.5-2.4); Potassium 4.3 mmol/L (3.5-5.5); Sodium 139 mmol/L (135-145); Total Bilirubin 0.3 mg/dL (0.3-1.2); Total Protein 5.4 g/dL (6.2-8.2)
[2024-08-27 11:09] LABS: Glucose,Whole Blood 110 mg/dL (70-110)
[2024-08-27] MEDS: KETOROLAC 15 MG/ML 1 ML VIAL IVP SCH (12:02)
--- NOTE | 2024-08-27 13:18 | P.PN ---
Subjective Progress Note Date: 08/27/24 Principal diagnosis: Reason for follow-up is complicated diverticulitis Patient is a 59-year-old male with a past medical history significant for meningitis back in 1975, diverticulitis in June 2024 presented to hospital with abdominal pain has been diagnosed with complicated diverticulitis with microperforation but no drainable abscess. On today's evaluation that is 08/27/2024, Patient is afebrile this morning patient denies having any chest pain shortness of breath or cough, the patient is breathing comfortably on room air, patient abdominal pain has slightly decreased in intensity no nausea vomiting or diarrhea. Patient white count 7.3, creatinine 0.7 Objective - Vital Signs Vital signs: Vital Signs Temp 98.1 F 08/27/24 06:56 Pulse 86 08/27/24 12:08 Resp 16 08/27/24 06:56 BP 119/73 08/27/24 06:56 Pulse Ox 96 08/27/24 06:56 FiO2 Intake & Output 08/26/24 08/27/24 08/27/24 18:59 06:59 18:59 Weight 79.379 kg Other: Voiding Method Toilet # Voids 3 1 - Exam GENERAL DESCRIPTION: An elderly male lying in bed in no distress RESPIRATORY SYSTEM: Unlabored breathing , decreased breath sounds at bases HEART: S1 S2 regular rate and rhythm , ABDOMEN: Soft , less left-sided tenderness EXTREMITIES: No edema feet - Labs CBC & Chem 7: 08/27/24 05:01 08/27/24 05:01 Labs: Abnormal Lab Results - Last 24 Hours (Table) 08/27/24 08/27/24 08/27/24 Range/Units 05:01 05:01 05:01 RBC 4.05 L (4.30-5.90) m/uL Hgb 12.1 L (13.0-17.5) gm/dL Hct 36.2 L (39.0-53.0) % Hemoglobin A1c 6.4 H (<=6.0) % Calcium 8.4 L (8.7-10.3) mg/dL AST 9 L (14-35) U/L ALT 9 L (10-49) U/L Total Protein 5.4 L (6.2-8.2) g/dL Albumin 3.3 L (3.8-4.9) g/dL Albumin/Globulin Ratio 1.57 L (1.60-3.17) Ratio Assessment and Plan (1) Perforation of sigmoid colon due to diverticulitis Current Visit: Yes Status: Acute Code(s): K57.20 - DVTRCLI OF LG INT W PERFORATION AND ABSCESS W/O BLEEDING SNOMED Code(s): 5961731908950339 (2) Diverticulitis Current Visit: Yes Status: Acute Code(s): K57.92 - DVTRCLI OF INTEST, PART UNSP, W/O PERF OR ABSCESS W/O BLEED SNOMED Code(s): 621639602 Plan: 1patient presented to hospital with lower abdominal pain this being his second episode of admission to the hospital within 2 months concerning for recurrent diverticulitis with contained perforation and peridiverticular phlegmon but no drainable abscess we will need to cover for the enteric gram-negative both aerobes and anaerobes 2-patient did have slight decrease in abdominal pain white count normalized we will continue patient on Zosyn and will arrange for a short course of IV Zosyn on discharge Dictation was produced using [employer] dictation software. please excuse any grammatical, word or spelling errors. Time with Patient: Less than 30
[2024-08-27 17:05] LABS: Glucose,Whole Blood 133 mg/dL (70-110)
--- NOTE | 2024-08-27 17:46 | P.PN ---
Subjective Progress Note Date: 08/27/24 Hospital course: Patient is a very pleasant 59-year-old male with a past medical history of diverticulitis with history of colon rupture, nicotine dependence smoking 2 packs of cigarettes daily, and cannabis use. He presented to the emergency department with a chief complaint of abdominal pain. Patient recently diagnosed with diverticulitis complicated by rupture resulting in hospitalization 06/29/2024 through 07/02/2024. Patient reports he discharged home on prolonged antibiotic course and symptoms improved but never completely went away and over the past 24 hours has had significant pain/discomfort. He reports normal bowel function and denies having any melena or hematochezia and denies having any nausea, vomiting, or any other complaints. Upon arrival to our facility, patient underwent evaluation in the emergency department. Vital signs upon arrival show blood pressure 112/74, heart rate 109, respiratory rate 20, temp 97.4 F, and SpO2 of 98% on room air. Labs completed and reviewed. CBC showing leukocytosis with WBC count of 11.4. Coagulation profile normal findings. BMP showing hyperchloremia with chloride of 108 otherwise normal findings. Blood glucose was elevated at 209. Liver profile unremarkable. CT abdomen and pelvis compl eted showing changes of acute diverticulitis of the sigmoid colon with contained rupture and associated inflammatory changes and phlegmon, no evidence for drainable abscess at this time. Patient started on IV antibiotics with Zosyn and admitted under general surgery and we were consulted for medical management throughout hospitalization. Physical exam: Patient seen and fully evaluated at bedside this morning. He reports abdominal pain is significantly improved and reports only mild discomfort upon palpation stating more like a fullness. He denies having any nausea or vomiting. Reports passing flatus but denies any bowel movement. Patient reports his only complaint is feeling more tired today. Denies any other complaints at this time. Vital signs reviewed and stable. General: Nontoxic, no distress and appears stated age. Derm: Skin warm and dry, normal coloration for ethnicity. Head: Atraumatic, normocephalic and symmetric. Eyes: EOM's intact, no lid lag, and anicteric sclera Mouth: no lip lesions, mucus membranes moist Cardiovascular: regular rate and rhythm with normal S1S2, no murmur, positive posterior tibial pulses bilaterally, and cap refill < 2 seconds. Lungs: Respirations even, regular, and unlabored on room air. Lungs slightly diminished, no rhonchi, no rales, no wheezing, and no accessory muscle usage. Abdominal: soft, minimal abdominal tenderness throughout lower abdomen, no guarding, no appreciable organomegaly Ext: ROM intact. No gross muscle atrophy, no edema, no contractures Neuro: Speech clear, face symmetrical and CN II-XII grossly intact with no noted focal neuro deficits Psych: Alert and oriented to person, place, time, and situation. Appropriate and pleasant affect. Assessment and Plan of Care: Acute sigmoid diverticulitis with contained rupture and phlegmon, failed outpatient treatment Leukocytosis, likely secondary to above Normocytic anemia Continue IV antibiotics with Zosyn 3.375 g every 8 hours Consult to infectious disease secondary to recurrent diverticulitis failing outpatient therapy. General Surgery following. NPO, diet to be advanced as recommended by general surgery team. IV fluid hydration with 0.9% normal saline at 130 cc/h. Zosyn 4 mg IVP every 8 hours as needed for nausea or vomiting. Dilaudid 1 mg IVP every 3 hours as needed for severe pain. Patient has received 4 mg of Dilaudid overnight. Hyperglycemia -Patient denies history of diabetes, hemoglobin A1c 6.4%. Nicotine dependence Recommend smoking cessation. Order placed for nicotine patch 21 mg daily. Data and imaging reviewed: Morning labs reviewed. CBC showing improvement of leukocytosis with WBC count of 7.3 and mild normocytic anemia with hemoglobin of 12.1. BMP was unremarkable. Blood glucose 137. Hemoglobin A1c 6.4%. Magnesium 1.9. Liver profile showing low AST of 9 and ALT of 9 with alkaline phosphatase of 71. Vital signs reviewed. Blood pressure 119/73, heart rate 68, respiratory rate 16, temp 98.1 F, and SpO2 of 96% on room air. Thank you for allowing us to participate in the care of this pleasant patient. Do not hesitate to contact us with questions. Someone can be reached from the [facility] hospitalist group all hours of the day at [phone] or via [employer]. Patient was seen independently by Nurse Practitioner. This document was prepared using [employer] dictation software. Please allow for errors in independent beauty consultant while rare they do occur. I reviewed the documentation as provided by the RONALDO above, who is the original author of this note. I agree with the documented assessment and plan, with the following changes: none Objective - Vital Signs Vital signs: Vital Signs Temp 98.1 F 08/27/24 06:56 Pulse 68 08/27/24 06:56 Resp 16 08/27/24 06:56 BP 119/73 08/27/24 06:56 Pulse Ox 96 08/27/24 06:56 FiO2 Intake & Output 08/26/24 08/27/24 08/27/24 18:59 06:59 18:59 Weight 79.379 kg Other: Voiding Method Toilet # Voids 3 1 - Labs CBC & Chem 7: 08/27/24 05:01 08/27/24 05:01 Labs: Abnormal Lab Results - Last 24 Hours (Table) 08/27/24 Range/Units 05:01 RBC 4.05 L (4.30-5.90) m/uL Hgb 12.1 L (13.0-17.5) gm/dL Hct 36.2 L (39.0-53.0) %
[2024-08-27 20:17] LABS: Glucose,Whole Blood 118 mg/dL (70-110)
[2024-08-28 06:07] LABS: Glucose,Whole Blood 94 mg/dL (70-110)
[2024-08-28 09:12] LABS: HCT 36.4 % (39.6-50.0); MCH 29.6 pg (27.0-32.0); MCV 89.7 FL (80.0-97.0); Mean Platelet Volume 10.6 FL (9.5-12.2); NRBC Per 100 WBC 0 X 10*3/uL (0.00-0.01); Platelet Count 267 X 10*3/uL (140-440); RBC 4.06 X 10*6/uL (4.40-5.60); RDW 13.4 % (11.5-14.5); WBC 7.06 X 10*3/uL (4.50-10.00)
--- NOTE | 2024-08-28 09:58 | P.PN ---
Subjective Progress Note Date: 08/28/24 Principal diagnosis: Recurrent diverticulitis Patient doing well today. Still no abdominal pain since Thursday evening. Tolerating diet. Some loose stools. He had 7 loose stools yesterday. He is afebrile. White blood cell count normal. Objective - Vital Signs Vital signs: Vital Signs Temp 98.0 F 08/28/24 06:59 Pulse 72 08/28/24 06:59 Resp 16 08/28/24 06:59 BP 134/90 08/28/24 06:59 Pulse Ox 98 08/28/24 06:59 FiO2 Intake & Output 08/27/24 08/28/24 08/28/24 18:59 06:59 18:59 Other: # Voids 1 1 - Exam Abdomen: Soft, nondistended, minimal lower quadrant tenderness - Labs CBC & Chem 7: 08/28/24 03:07 08/27/24 05:01 Labs: Abnormal Lab Results - Last 24 Hours (Table) 08/27/24 08/27/24 08/27/24 Range/Units 05:01 05:01 17:04 RBC (4.40-5.60) X 10*6/uL Hgb (13.0-17.0) g/dL Hct (39.6-50.0) % POC Glucose (mg/dL) 133 H (70-110) mg/dL Hemoglobin A1c 6.4 H (<=6.0) % Calcium 8.4 L (8.7-10.3) mg/dL AST 9 L (14-35) U/L ALT 9 L (10-49) U/L Total Protein 5.4 L (6.2-8.2) g/dL Albumin 3.3 L (3.8-4.9) g/dL Albumin/Globulin Ratio 1.57 L (1.60-3.17) Ratio 08/27/24 08/28/24 Range/Units 20:16 03:07 RBC 4.06 L (4.40-5.60) X 10*6/uL Hgb 12.0 L (13.0-17.0) g/dL Hct 36.4 L (39.6-50.0) % POC Glucose (mg/dL) 118 H (70-110) mg/dL Hemoglobin A1c (<=6.0) % Calcium (8.7-10.3) mg/dL AST (14-35) U/L ALT (10-49) U/L Total Protein (6.2-8.2) g/dL Albumin (3.8-4.9) g/dL Albumin/Globulin Ratio (1.60-3.17) Ratio Assessment and Plan (1) Diverticulitis Narrative/Plan: Patient doing well with IV antibiotics. Plan PICC line tomorrow and home with IV antibiotic therapy. Current Visit: Yes Status: Acute Code(s): K57.92 - DVTRCLI OF INTEST, PART UNSP, W/O PERF OR ABSCESS W/O BLEED SNOMED Code(s): 496405366
[2024-08-28] MEDS: ZINC OXIDE PASTE (Z-GUARD) 1 APPLIC TOPICAL PRN (10:14)
[2024-08-28 10:15] LABS: ALT 9 U/L (10-49); AST 12 U/L (14-35); Albumin 3.4 g/dL (3.8-4.9); Albumin/Globulin Ratio 1.48 Ratio (1.60-3.17); Alkaline Phosphatase 71 U/L (41-126); BUN/Creat Ratio 8.88 Ratio (12.00-20.00); Blood Urea Nitrogen 7.1 mg/dL (9.0-27.0); Calcium 8.8 mg/dL (8.7-10.3); Carbon Dioxide 23.9 mmol/L (21.6-31.8); Chloride 107 mmol/L (96-109); Globulin 2.3 g/dL (1.6-3.3); Glucose 99 mg/dL (70-110); Magnesium 2.1 mg/dL (1.5-2.4); Potassium 4.1 mmol/L (3.5-5.5); Sodium 140 mmol/L (135-145); Total Bilirubin 0.2 mg/dL (0.3-1.2); Total Protein 5.7 g/dL (6.2-8.2)
[2024-08-28 11:32] LABS: Glucose,Whole Blood 103 mg/dL (70-110)
--- NOTE | 2024-08-28 15:12 | P.PN ---
Subjective Progress Note Date: 08/28/24 Hospital course: Patient is a very pleasant 59-year-old male with a past medical history of diverticulitis with history of colon rupture, nicotine dependence smoking 2 packs of cigarettes daily, and cannabis use. He presented to the emergency department with a chief complaint of abdominal pain. Patient recently diagnosed with diverticulitis complicated by rupture resulting in hospitalization 06/29/2024 through 07/02/2024. Patient reports he discharged home on prolonged antibiotic course and symptoms improved but never completely went away and over the past 24 hours has had significant pain/discomfort. He reports normal bowel function and denies having any melena or hematochezia and denies having any nausea, vomiting, or any other complaints. Upon arrival to our facility, patient underwent evaluation in the emergency department. Vital signs upon arrival show blood pressure 112/74, heart rate 109, respiratory rate 20, temp 97.4 F, and SpO2 of 98% on room air. Labs completed and reviewed. CBC showing leukocytosis with WBC count of 11.4. Coagulation profile normal findings. BMP showing hyperchloremia with chloride of 108 otherwise normal findings. Blood glucose was elevated at 209. Liver profile unremarkable. CT abdomen and pelvis compl eted showing changes of acute diverticulitis of the sigmoid colon with contained rupture and associated inflammatory changes and phlegmon, no evidence for drainable abscess at this time. Patient started on IV antibiotics with Zosyn and admitted under general surgery and we were consulted for medical management throughout hospitalization. Physical exam: Patient seen and fully evaluated at bedside this morning. He reports abdominal pain has resolved. He denies having any nausea or vomiting and is tolerating a clear liquid diet. Patient does report multiple episodes of diarrhea. Discussed with RN at bedside if continues will obtain a C. difficile culture. Vital signs reviewed and stable. General: Nontoxic, no distress and appears stated age. Derm: Skin warm and dry, normal coloration for ethnicity. Head: Atraumatic, normocephalic and symmetric. Eyes: EOM's intact, no lid lag, and anicteric sclera Mouth: no lip lesions, mucus membranes moist Cardiovascular: regular rate and rhythm with normal S1S2, no murmur, positive posterior tibial pulses bilaterally, and cap refill < 2 seconds. Lungs: Respirations even, regular, and unlabored on room air. Lungs slightly diminished, no rhonchi, no rales, no wheezing, and no accessory muscle usage. Abdominal: soft, minimal abdominal tenderness throughout lower abdomen, no guarding, no appreciable organomegaly Ext: ROM intact. No gross muscle atrophy, no edema, no contractures Neuro: Speech clear, face symmetrical and CN II-XII grossly intact with no noted focal neuro deficits Psych: Alert and oriented to person, place, time, and situation. Appropriate and pleasant affect. Assessment and Plan of Care: Acute sigmoid diverticulitis with contained rupture and phlegmon, failed outpatient treatment Leukocytosis, likely secondary to above Normocytic anemia Continue IV antibiotics with Zosyn 3.375 g every 8 hours Infectious disease following secondary to recurrent diverticulitis failing outpatient therapy, reviewed documentation in chart. General Surgery following. Clear Liquid diet IV fluid hydration with 0.9% normal saline at 75 cc/h. Zosyn 4 mg IVP every 8 hours as needed for nausea or vomiting. Dilaudid 1 mg IVP every 3 hours as needed for severe pain. Hyperglycemia -Patient denies history of diabetes, hemoglobin A1c 6.4%. Nicotine dependence Recommend smoking cessation. Order placed for nicotine patch 21 mg daily. Data and imaging reviewed: Morning labs reviewed. CBC showing hemoglobin stable at 12.0. BMP unremarkable. Blood glucose 99. Magnesium 2.1. Liver profile showing total bili of 0.2, AST of 12, PMN of 3.4. Vital signs reviewed. Blood pressure 134/90, heart rate 72, respiratory rate 16, temp 98.0 F, and SpO2 of 98% on room air. Thank you for allowing us to participate in the care of this pleasant patient. Do not hesitate to contact us with questions. Someone can be reached from the [facility] hospitalist group all hours of the day at [phone] or via perfect serve. Patient was seen independently by Nurse Practitioner. This document was prepared using [employer] dictation software. Please allow for errors in ancillary services manager while rare they do occur. . I reviewed the documentation as provided by the RONALDO above, who is the original author of this note. I agree with the documented assessment and plan, with the following changes: none Objective - Vital Signs Vital signs: Vital Signs Temp 98.0 F 08/28/24 06:59 Pulse 72 08/28/24 06:59 Resp 16 08/28/24 06:59 BP 134/90 08/28/24 06:59 Pulse Ox 98 08/28/24 06:59 FiO2 Intake & Output 08/27/24 08/28/24 08/28/24 18:59 06:59 18:59 Other: # Voids 1 1 - Labs CBC & Chem 7: 08/28/24 03:07 08/28/24 03:07 Labs: Abnormal Lab Results - Last 24 Hours (Table) 08/27/24 08/27/24 08/27/24 Range/Units 05:01 05:01 17:04 POC Glucose (mg/dL) 133 H (70-110) mg/dL Hemoglobin A1c 6.4 H (<=6.0) % Calcium 8.4 L (8.7-10.3) mg/dL AST 9 L (14-35) U/L ALT 9 L (10-49) U/L Total Protein 5.4 L (6.2-8.2) g/dL Albumin 3.3 L (3.8-4.9) g/dL Albumin/Globulin Ratio 1.57 L (1.60-3.17) Ratio 08/27/24 Range/Units 20:16 POC Glucose (mg/dL) 118 H (70-110) mg/dL Hemoglobin A1c (<=6.0) % Calcium (8.7-10.3) mg/dL AST (14-35) U/L ALT (10-49) U/L Total Protein (6.2-8.2) g/dL Albumin (3.8-4.9) g/dL Albumin/Globulin Ratio (1.60-3.17) Ratio
[2024-08-28 17:03] LABS: Glucose,Whole Blood 99 mg/dL (70-110)
[2024-08-28 20:35] LABS: Glucose,Whole Blood 121 mg/dL (70-110)
--- NOTE | 2024-08-28 22:04 | P.PN ---
Subjective Progress Note Date: 08/28/24 Principal diagnosis: Reason for follow-up is complicated diverticulitis Patient is a 59-year-old male with a past medical history significant for meningitis back in 1975, diverticulitis in June 2024 presented to hospital with abdominal pain has been diagnosed with complicated diverticulitis with microperforation but no drainable abscess. On today's evaluation that is 08/28/2024,the patient denies any fever or any chills, patient is breathing comfortably on room air, the patient denies chest pain shortness of breath and no significant cough, patient denies nausea vomiting and abdominal pain has decreased in intensity. Patient white count 7.06 creatinine 0.8 Objective - Vital Signs Vital signs: Vital Signs Temp 98.1 F 08/28/24 14:03 Pulse 70 08/28/24 15:44 Resp 18 08/28/24 14:03 BP 149/92 08/28/24 14:03 Pulse Ox 95 08/28/24 14:03 FiO2 Intake & Output 08/27/24 08/28/24 08/28/24 18:59 06:59 18:59 Other: Voiding Method Toilet # Voids 1 1 8 # Bowel Movements 6 - Exam GENERAL DESCRIPTION: An elderly male lying in bed in no distress RESPIRATORY SYSTEM: Unlabored breathing , decreased breath sounds at bases HEART: S1 S2 regular rate and rhythm , ABDOMEN: Soft , less left-sided tenderness EXTREMITIES: No edema feet - Labs CBC & Chem 7: 08/28/24 03:07 08/28/24 03:07 Labs: Abnormal Lab Results - Last 24 Hours (Table) 08/27/24 08/28/24 08/28/24 Range/Units 20:16 03:07 03:07 RBC 4.06 L (4.40-5.60) X 10*6/uL Hgb 12.0 L (13.0-17.0) g/dL Hct 36.4 L (39.6-50.0) % BUN 7.1 L (9.0-27.0) mg/dL BUN/Creatinine Ratio 8.88 L (12.00-20.00) Ratio POC Glucose (mg/dL) 118 H (70-110) mg/dL Total Bilirubin 0.2 L (0.3-1.2) mg/dL AST 12 L (14-35) U/L Total Protein 5.7 L (6.2-8.2) g/dL Albumin 3.4 L (3.8-4.9) g/dL Albumin/Globulin Ratio 1.48 L (1.60-3.17) Ratio Assessment and Plan (1) Perforation of sigmoid colon due to diverticulitis Current Visit: Yes Status: Acute Code(s): K57.20 - DVTRCLI OF LG INT W PERFORATION AND ABSCESS W/O BLEEDING SNOMED Code(s): 1479756426273042 (2) Diverticulitis Current Visit: Yes Status: Acute Code(s): K57.92 - DVTRCLI OF INTEST, PART UNSP, W/O PERF OR ABSCESS W/O BLEED SNOMED Code(s): 543549708 Plan: 1patient presented to hospital with lower abdominal pain this being his second episode of admission to the hospital within 2 months concerning for recurrent diverticulitis with contained perforation and peridiverticular phlegmon but no drainable abscess we will need to cover for the enteric gram-negative both aero bes and anaerobes 2-patient is afebrile white count normalized we will continue patient on Zosyn we will order midline for and arrange for outpatient IV Zosyn on discharge Dictation was produced using [employer] dictation software. please excuse any grammatical, word or spelling errors. Time with Patient: Less than 30
[2024-08-29 06:30] LABS: Glucose,Whole Blood 104 mg/dL (70-110)
[2024-08-29 07:50] VITALS: BP 142/86; PULSE 68; RESP 17; TEMP 98.3
[2024-08-29 08:48] LABS: HCT 37.5 % (39.6-50.0); HGB 12.2 g/dL (13.0-17.0); MCH 28.9 pg (27.0-32.0); MCHC 32.5 g/dL (32.0-37.0); MCV 88.9 FL (80.0-97.0); Mean Platelet Volume 10.7 FL (9.5-12.2); NRBC Per 100 WBC 0 X 10*3/uL (0.00-0.01); Platelet Count 294 X 10*3/uL (140-440); RBC 4.22 X 10*6/uL (4.40-5.60); RDW 13.4 % (11.5-14.5); WBC 7.72 X 10*3/uL (4.50-10.00)
[2024-08-29 08:54] LABS: ALT 9 U/L (10-49); AST 12 U/L (14-35); Albumin 3.5 g/dL (3.8-4.9); Albumin/Globulin Ratio 1.67 Ratio (1.60-3.17); Alkaline Phosphatase 67 U/L (41-126); BUN/Creat Ratio 5.62 Ratio (12.00-20.00); Blood Urea Nitrogen 4.5 mg/dL (9.0-27.0); Calcium 8.7 mg/dL (8.7-10.3); Carbon Dioxide 23.3 mmol/L (21.6-31.8); Chloride 108 mmol/L (96-109); Globulin 2.1 g/dL (1.6-3.3); Glucose 100 mg/dL (70-110); Potassium 3.9 mmol/L (3.5-5.5); Sodium 141 mmol/L (135-145); Total Bilirubin 0.2 mg/dL (0.3-1.2); Total Protein 5.6 g/dL (6.2-8.2)
[2024-08-29 11:18] LABS: Glucose,Whole Blood 80 mg/dL (70-110)
--- NOTE | 2024-08-29 11:49 | P.PN ---
Subjective Progress Note Date: 08/29/24 Hospital course: Patient is a very pleasant 59-year-old male with a past medical history of diverticulitis with history of colon rupture, nicotine dependence smoking 2 packs of cigarettes daily, and cannabis use. He presented to the emergency department with a chief complaint of abdominal pain. Patient recently diagnosed with diverticulitis complicated by rupture resulting in hospitalization 06/29/2024 through 07/02/2024. Patient reports he discharged home on prolonged antibiotic course and symptoms improved but never completely went away and over the past 24 hours has had significant pain/discomfort. He reports normal bowel function and denies having any melena or hematochezia and denies having any nausea, vomiting, or any other complaints. Upon arrival to our facility, patient underwent evaluation in the emergency department. Vital signs upon arrival show blood pressure 112/74, heart rate 109, respiratory rate 20, temp 97.4 F, and SpO2 of 98% on room air. Labs completed and reviewed. CBC showing leukocytosis with WBC count of 11.4. Coagulation profile normal findings. BMP showing hyperchloremia with chloride of 108 otherwise normal findings. Blood glucose was elevated at 209. Liver profile unremarkable. CT abdomen and pelvis compl eted showing changes of acute diverticulitis of the sigmoid colon with contained rupture and associated inflammatory changes and phlegmon, no evidence for drainable abscess at this time. Patient started on IV antibiotics with Zosyn and admitted under general surgery and we were consulted for medical management throughout hospitalization. Physical exam: Patient seen and fully evaluated at bedside this morning. He continues to report full resolution of abdominal pain and denies having any nausea, vomiting, or any other complaints at this time. He reports bowel function normal and denies any further diarrhea. PICC line was placed this morning. Vital signs reviewed and stable. General: Nontoxic, no distress and appears stated age. Derm: Skin warm and dry, normal coloration for ethnicity. Head: Atraumatic, normocephalic and symmetric. Eyes: EOM's intact, no lid lag, and anicteric sclera Mouth: no lip lesions, mucus membranes moist Cardiovascular: regular rate and rhythm with normal S1S2, no murmur, positive posterior tibial pulses bilaterally, and cap refill < 2 seconds. Lungs: Respirations even, regular, and unlabored on room air. Lungs slightly diminished, no rhonchi, no rales, no wheezing, and no accessory muscle usage. Abdominal: soft, minimal abdominal tenderness throughout lower abdomen, no guarding, no appreciable organomegaly Ext: ROM intact. No gross muscle atrophy, no edema, no contractures Neuro: Speech clear, face symmetrical and CN II-XII grossly intact with no noted focal neuro deficits Psych: Alert and oriented to person, place, time, and situation. Appropriate and pleasant affect. Assessment and Plan of Care: Acute sigmoid diverticulitis with contained rupture and phlegmon, failed outpatient treatment Leukocytosis, likely secondary to above Normocytic anemia Continue IV antibiotics with Zosyn 3.375 g every 8 hours. PICC line was placed this morning for home IV antibiotics. Infectious disease following secondary to recurrent diverticulitis failing o utpatient therapy, care with Dr. Pandya. Patient to be discharged home on IV antibiotics. General Surgery following. Clear Liquid diet IV fluid hydration with 0.9% normal saline at 75 cc/h. Zosyn 4 mg IVP every 8 hours as needed for nausea or vomiting. Dilaudid 1 mg IVP every 3 hours as needed for severe pain. Hyperglycemia -Patient denies history of diabetes, hemoglobin A1c 6.4%. Nicotine dependence Recommend smoking cessation. Order placed for nicotine patch 21 mg daily. Data and imaging reviewed: Morning labs reviewed. CBC showing hemoglobin stable at 12.2. BMP remarkable.. Blood glucose 100. Magnesium 2.0.. Liver profile showing total bili of 0.2, AST of 12, ALT 9 and alk phos of 67 with albumin of 3.5. Vital signs reviewed. Blood pressure 142/86, heart rate 68, respiratory rate 17, temp 98.3 F, and SpO2 of 96% on room air. Pt is medically optimized for discharge home on IV antibiotics managed by infectious disease, and once cleared by primary admitting general surgery team. Thank you for allowing us to participate in the care of this pleasant patient. Do not hesitate to contact us with questions. Someone can be reached from the [facility] hospitalist group all hours of the day at [phone] or via perfect serve. Patient was seen independently by Nurse Practitioner. This document was prepared using [employer] dictation software. Please allow for errors in professional application designer while rare they do occur. . I reviewed the documentation as provided by the RONALDO above, who is the original author of this note. I agree with the documented assessment and plan, with the following changes: none Objective - Vital Signs Vital signs: Vital Signs Temp 98.3 F 08/29/24 07:06 Pulse 68 08/29/24 07:06 Resp 17 08/29/24 07:06 BP 142/86 08/29/24 07:06 Pulse Ox 96 08/29/24 07:06 FiO2 Intake & Output 08/28/24 08/29/24 08/29/24 18:59 06:59 18:59 Intake Total 1100 Balance 1100 Intake: Intake, IV Titration 1100 Amount Piperacillin-Tazobactam 3 200 .375 gm In Sodium Chloride 0.9% 100 ml @ 25 mls/hr IVPB Q8H [facility] Rx#: [id number] Sodium Chloride 0.9% 1, 900 000 ml @ 75 mls/hr IV . [id number] [facility] Rx#:[id number] Other: Voiding Method Toilet # Voids 2 1 # Bowel Movements 6 - Labs CBC & Chem 7: 08/29/24 03:05 08/29/24 03:05 Labs: Abnormal Lab Results - Last 24 Hours (Table) 08/28/24 08/28/24 08/28/24 Range/Units 03:07 03:07 20:34 RBC 4.06 L (4.40-5.60) X 10*6/uL Hgb 12.0 L (13.0-17.0) g/dL Hct 36.4 L (39.6-50.0) % BUN 7.1 L (9.0-27.0) mg/dL BUN/Creatinine Ratio 8.88 L (12.00-20.00) Ratio POC Glucose (mg/dL) 121 H (70-110) mg/dL Total Bilirubin 0.2 L (0.3-1.2) mg/dL AST 12 L (14-35) U/L Total Protein 5.7 L (6.2-8.2) g/dL Albumin 3.4 L (3.8-4.9) g/dL Albumin/Globulin Ratio 1.48 L (1.60-3.17) Ratio
--- NOTE | 2024-08-29 12:50 | P.DS ---
Providers Date of admission: 08/25/24 19:30 Expected date of discharge: 08/29/24 Attending physician: Wade Krueger Consults: 08/26/24 09:12 Consult Physician Routine Consulting Provider: Mable Pandya Consult Reason/Comments: recurrent diverticulitis Do you want consulting provider notified?: Yes 08/26/24 09:24 Consult Physician Routine Consulting Provider: Yaya Palacio Consult Reason/Comments: medical management Do you want consulting provider notified?: Yes Primary care physician: Wade Krueger Hospital Course: Discharge diagnosis 1. Acute diverticulitis of sigmoid colon with contained rupture and phlegmon Hospital course This is a 59-year-old male with history of perforated diverticulitis. Patient presented with abdominal pain. CAT scan had reported diverticulitis with a contained rupture and phlegmon. Patient has been on IV antibiotics. Surgeon discussed with patient options of exploratory laparotomy with sigmoid resection and end colostomy versus IV antibiotic therapy, followed by outpatient colonoscopy and referral to a colorectal surgeon for laparoscopic resection. Patient has chosen to proceed with IV antibiotic option. He is followed by infectious disease. He has his PICC line in place and IV antibiotics have been arranged for outpatient at his home. His pain is controlled. He is tolerating diet. He is afebrile. He is stable for discharge. Please refer to chart for any further details. Physician Complaint Clerk note has been reviewed by physician. Signing provider agrees with the documented findings, assessment, and plan of care. I have personally seen and examined the patient, reviewed the SPRING UP SUPERVISOR /PAs history, exam and MDM and agree with the assessment and plan as written. Based on total visit time, I have performed more than 50% of the visit. As above: Patient doing well today. No pain still. May discharge after home IV antibiotics arranged. Follow-up with 1 week. Patient Condition at Discharge: Stable Plan - Discharge Summary Discharge Rx Participant: Yes New Discharge Prescriptions: New Piperacillin-Tazobactam [Zosyn] 3.375 gm IVPB Q8H each Discontinued Levofloxacin [Levaquin] 500 mg PO DIRECTED metroNIDAZOLE [Flagyl] 500 mg PO TID Discharge Medication List Piperacillin-Tazobactam [Zosyn] 3.375 gm IVPB Q8H each 08/29/24 [Rx] Follow up Appointment(s)/Referral(s): Griselda Dutton MD [REFERRING] - 1 Week (Please call prior to discharge and schedule appointment for outpatient follow up and establishment of PCP ) [facility], [NON-STAFF] - As Needed [facility], [REFERRING] - As Needed (IV antibiotics to be delivered to your home this evening between 6-8p.) Wade Krueger MD [Primary Care Provider] - 1 Week Mable Pandya MD [STAFF PHYSICIAN] - 1 Week Activity/Diet/Wound Care/Special Instructions: Abdominal/pelvic Cat Scan scheduled for 11:30a on September 07. Please arrive at [facility] at 10am. Nothing to eat or drink 2h prior, after 9:30a. Zosyn IV antibiotic per infectious disease Discharge Disposition: HOME SELF-CARE
--- NOTE | 2024-08-30 08:54 | P.PN ---
Subjective Progress Note Date: 08/29/24 Principal diagnosis: Reason for follow-up is complicated diverticulitis Patient is a 59-year-old male with a past medical history significant for meningitis back in 1975, diverticulitis in June 2024 presented to hospital with abdominal pain has been diagnosed with complicated diverticulitis with microperforation but no drainable abscess. On today's evaluation that is 08/29/2024,the patient remains to be afebrile, patient is on room air not requiring supplemental oxygen and denies any shortness of breath no chest pain or cough.Patient denies having any nausea or vomiting, abdominal pain has decreased in intensity did have few loose stools. Patient white count is 7.72, creatinine 0.8 Objective - Vital Signs Vital signs: Vital Signs Temp 98.3 F 08/29/24 07:06 Pulse 68 08/29/24 07:06 Resp 17 08/29/24 07:06 BP 142/86 08/29/24 07:06 Pulse Ox 96 08/29/24 07:06 FiO2 Intake & Output 08/28/24 08/29/24 08/29/24 18:59 06:59 18:59 Intake Total 1100 Balance 1100 Intake: Intake, IV Titration 1100 Amount Piperacillin-Tazobactam 3 200 .375 gm In Sodium Chloride 0.9% 100 ml @ 25 mls/hr IVPB Q8H [facility] Rx#: [id number] Sodium Chloride 0.9% 1, 900 000 ml @ 75 mls/hr IV . [id number] [facility] Rx#:[id number] Other: Voiding Method Toilet # Voids 2 1 # Bowel Movements 6 - Exam GENERAL DESCRIPTION: An elderly male lying in bed in no distress RESPIRATORY SYSTEM: Unlabored breathing , decreased breath sounds at bases HEART: S1 S2 regular rate and rhythm , ABDOMEN: Soft , less left-sided tenderness EXTREMITIES: No edema feet - Labs CBC & Chem 7: 08/29/24 03:05 08/29/24 03:05 Labs: Abnormal Lab Results - Last 24 Hours (Table) 08/28/24 08/29/24 08/29/24 Range/Units 20:34 03:05 03:05 RBC 4.22 L (4.40-5.60) X 10*6/uL Hgb 12.2 L (13.0-17.0) g/dL Hct 37.5 L (39.6-50.0) % BUN 4.5 L (9.0-27.0) mg/dL BUN/Creatinine Ratio 5.62 L (12.00-20.00) Ratio POC Glucose (mg/dL) 121 H (70-110) mg/dL Total Bilirubin 0.2 L (0.3-1.2) mg/dL AST 12 L (14-35) U/L ALT 9 L (10-49) U/L Total Protein 5.6 L (6.2-8.2) g/dL Albumin 3.5 L (3.8-4.9) g/dL Assessment and Plan (1) Perforation of sigmoid colon due to diverticulitis Status: Acute Code(s): K57.20 - DVTRCLI OF LG INT W PERFORATION AND ABSCESS W/O BLEEDING SNOMED Code(s): 1915116530090571 (2) Diverticulitis Status: Acute Code(s): K57.92 - DVTRCLI OF INTEST, PART UNSP, W/O PERF OR ABSCESS W/O BLEED SNOMED Code(s): 129293252 Plan: 1patient presented to hospital with lower abdominal pain this being his second episode of admission to the hospital within 2 months concerning for recurrent diverticulitis with contained perforation and peridiverticular phlegmon but no drainable abscess we will need to cover for the enteric gram-negative both aerobes and anaerobes 2-patient is afebrile white count normalized, patient did get a midline prescription for outpatient IV Zosyn was provided to the rehabilitation case coordinator plan is for 10-day course of Zosyn on discharge and follow-up CT before completion of the antibiotic to make sure complete resolution of his infection before dissolution of antibiotic Dictation was produced using [employer] dictation software. please excuse any grammatical, word or spelling errors. Time with Patient: Less than 30
== END 2024-08-29 14:27 | disposition home or self-care (01) | DRG 244 ==
LOC: EC 16:23 → 4SSUR 19:30
PROVIDERS: ADMIT Surgery; ATTEND Surgery
PROC: 05HA33Z Insertion of Infusion Device into Left Brachial Vein, Percutaneous Approach (ICD-10-PCS; principal; 2024-08-29 12:15)
DX: K57.20 Diverticulitis of large intestine with perforation and abscess without bleeding (principal); F17.210 Nicotine dependence, cigarettes, uncomplicated; R73.9 Hyperglycemia, unspecified; E87.8 Other disorders of electrolyte and fluid balance, not elsewhere classified; Z79.2 Long term (current) use of antibiotics; Z86.61 Personal history of infections of the central nervous system; Z71.6 Tobacco abuse counseling
CPT/HCPCS: 36410; 36415; 74177; 76937; 80053; 83036; 83690; 83735; 85025; 85027; 85610; 85730; 94640; 96361; 96374; 96375; 99285

== ENCOUNTER → 2024-09-07 | Outpatient (CLI) | payer OTHER ==
[2024-09-07 10:47] LABS: African American GFR (CKD) >90 (>60 ml/min/1.73 sqM); Blood Urea Nitrogen 19 mg/dL (9-20); Non-African American GFR(CKD) >90 (>60 ml/min/1.73 sqM)
--- NOTE | 2024-09-07 12:44 | CT ---
EXAMINATION TYPE: CT abdomen pelvis w con CT DLP: 586.7 mGycm, Automated exposure control for dose reduction was used. DATE OF EXAM: 09/07/2024 12:10 PM COMPARISON: Multiple CT abdomen pelvis with most recent 08/25/2024. CLINICAL INDICATION:Male, 59 years old with history of K57.92 DIVERTICULITIS; f/u diverticulitis TECHNIQUE: Standard CT of the abdomen and pelvis following the administration of 100 cc of Isovue 3 00 IV contrast material. Coronal and sagittal reformats were performed. FINDINGS: LOWER CHEST: Posterior dependent subsegmental atelectasis is noted. ABDOMEN LIVER: Unremarkable GALLBLADDER AND BILE DUCTS: Unremarkable. PANCREAS: Unremarkable. SPLEEN: Unremarkable. ADRENAL GLANDS: Unremarkable. KIDNEYS AND URETERS: No evidence of hydronephrosis or renal calculus. The kidneys enhance symmetrical ly. Stable right upper pole renal 2.2 cm cyst. Contrast is demonstrated within both collecting system s on the delayed phase. PELVIS BLADDER: Unremarkable REPRODUCTIVE: Coarse calcifications of the prostate gland are identified. Prominent prostate gland. ABDOMEN & PELVIS STOMACH AND BOWEL: Stomach and duodenum are unremarkable. Enteric contrast is reaches the mid small b owel. Sigmoid diverticulosis identified. Decreased inflammatory changes with continued stranding/soft tissue identified within previously seen contained rupture of the sigmoid colon. This measures 4.0 x 3.0 cm. Decreased foci of gas. No organized fluid collection. No evidence of bowel obstruction. PERITONEUM: No evidence of pneumoperitoneum or free fluid. VASCULATURE: No evidence of aortic aneurysm. Infrarenal abdominal fusiform ectasia measuring up to 2. 6 cm is stable. Moderate atelectatic calcification of the aorta and its branches. MUSCULOSKELETAL: No acute osseous abnormalities LYMPH NODES: No evidence for lymphadenopathy. SOFT TISSUE/ABDOMINAL WALL: Unremarkable IMPRESSION: Decreasing inflammatory changes from its previously seen sigmoid diverticulitis with contained ruptur e. There is significant residual stranding/soft tissue in this region. No drainable organized fluid c ollection. [facility], , 09/07/2024 12:41 PM
== END | disposition home or self-care (01) ==
LOC: RADCTMAIN 10:10
PROVIDERS: ATTEND Internal Medicine Infectious Disease
DX: K57.32 Diverticulitis of large intestine without perforation or abscess without bleeding (principal)
CPT/HCPCS: 36415; 74177; 82565; 84520

== ENCOUNTER 2024-09-12 15:52 | Emergency (ER) | payer OTHER ==
[2024-09-12] MEDS: SODIUM CHLORIDE 0.9% 1,000 ML IV STA (16:22)
[2024-09-12 16:38] LABS: Basophils # (A) 0.1 k/uL (0-0.2); Basophils % (A) 1 %; Eosinophils # (A) 0.2 k/uL (0-0.7); Eosinophils % (A) 4 %; HCT 43.4 % (39.0-53.0); HGB 13.5 gm/dL (13.0-17.5); Lymphocytes # (A) 1.5 k/uL (1.0-4.8); Lymphocytes % (A) 24 %; MCH 28.2 pg (25.0-35.0); MCHC 31.2 g/dL (31.0-37.0); MCV 90.3 fL (80.0-100.0); Mean Platelet Volume 7.2; Monocytes # (A) 0.4 k/uL (0-1.0); Monocytes % (A) 6 %; Neutrophils # (A) 3.8 k/uL (1.3-7.7); Neutrophils % (A) 63 %; Platelet Count 306 k/uL (150-450); RBC 4.81 m/uL (4.30-5.90)
[2024-09-12 16:43] LABS: Appearance,Urine Clear (Clear); Bilirubin,Urine Negative (Negative); Blood,Urine Negative (Negative); Color,Urine Colorless; Glucose,Urine (UA) Negative (Negative); Ketones,Urine Negative (Negative); Leukocyte Esterase,Urine Negative (Negative); Nitrite,Urine Negative (Negative); Protein,Urine Negative (Negative); Specific Gravity,Urine 1.024 (1.001-1.035); Urobilinogen,Urine <2.0 mg/dL (<2.0)
[2024-09-12 16:46] LABS: INR 0.9 (<1.2); Partial Thromboplastin Time 25.1 sec (22.0-30.0); Prothrombin Time 10.1 sec (10.0-12.5)
[2024-09-12 16:47] LABS: ALT 18 U/L (4-49); AST 18 U/L (17-59); African American GFR (CKD) >90 (>60 ml/min/1.73 sqM); Albumin 4.4 g/dL (3.5-5.0); Alkaline Phosphatase 90 U/L (38-126); Amylase 48 U/L (30-110); Anion Gap 6 mmol/L; Blood Urea Nitrogen 19 mg/dL (9-20); Calcium 9.9 mg/dL (8.4-10.2); Carbon Dioxide 24 mmol/L (22-30); Chloride 108 mmol/L (98-107); Glucose 122 mg/dL (74-99); Lipase 67 U/L (23-300); Non-African American GFR(CKD) >90 (>60 ml/min/1.73 sqM); Sodium 138 mmol/L (137-145); Total Bilirubin 0.4 mg/dL (0.2-1.3); Total Protein 7.1 g/dL (6.3-8.2)
[2024-09-12] MEDS ORDERED: IOPAMIDOL CONTRAST (ORAL USE) VIAL PO PRN (17:14)
[2024-09-12] MEDS: HYDROmorphone 1 MG/ML 1 ML SYRINGE IVP STA ×2 (17:42→20:29)
--- NOTE | 2024-09-12 19:56 | ED ---
Abdominal Pain HPI <Troy Quiroga - Last Filed: 09/12/24 21:48> - General Source: patient, family Mode of arrival: ambulatory Limitations: no limitations <Joy Tamayo - Last Filed: 09/15/24 10:49> - General Chief Complaint: Abdominal Pain Stated Complaint: Abdominal Pain Time Seen by Provider: 09/12/24 16:14 - History of Present Illness Initial Comments: Patient is a 59-year-old male with a past medical history of recent admission for diverticulitis with colonic rupture, discharged provide and IV Zosyn for outpatient follow-up. Since Thursday patient has had worsening lower abdominal pain. Patient states that today pain is actually somewhat improved from Thursday however he has had persistent lower abdominal pain. He saw his primary care provider, Dr. Ramirez today who sent him to the emergency department for repeat imaging out of concern for new abscess formation given worsening pain. Patient denies nausea, vomiting, does state that he had a few loose stools this weekend but had a normal bowel movement earlier today. No black or bloody stools. No fevers or chills. Endorses pain is 6 out of 10 currently. Denies dysuria or hematuria. Patient surgeon is Dr. Krueger. (Joy Tamayo) - Related Data Previous Rx's Medication Instructions Recorded Piperacillin-Tazobactam [Zosyn] 3.375 gm IVPB Q8H each 08/29/24 oxyCODONE HCL [OxyIR] 5 mg PO Q6H PRN 3 Days #12 tab 09/14/24 Allergies Allergy/AdvReac Type Severity Reaction Status Date / Time No Known Allergies Allergy Verified 09/12/24 16:52 Review of Systems ROS Other: All systems not noted in ROS Statement are negative. <Troy Quiroga - Last Filed: 09/12/24 21:48> ROS Other: All systems not noted in ROS Statement are negative. <Joy Tamayo - Last Filed: 09/15/24 10:49> ROS Statement: Those systems with pertinent positive or pertinent negative responses have been documented in the HPI. Past Medical History Additional Past Medical History / Comment(s): colon rupture- treated w/ abx. diverticulitis since 07/16. Meningitis as 1976 History of Any Multi-Drug Resistant Organisms: None Reported Past Surgical History: No Surgical Hx Reported Additional Past Surgical History / Comment(s): colon rupture Past Anesthesia/Blood Transfusion Reactions: No Reported Reaction Past Psychological History: No Psychological Hx Reported Smoking Status: Current every day smoker Past Alcohol Use History: None Reported Past Drug Use History: Marijuana <Joy Tamayo - Last Filed: 09/15/24 10:49> General Exam Limitations: no limitations <Joy Tamayo - Last Filed: 09/15/24 10:49> - General Exam Comments Initial Comments: PE: CONSTITUTIONAL: [no apparent distress, well appearing] SKIN: Warm, dry, no jaundice, hives or petechiae EYES: Pupils are equally round, extraocular movements intact without nystagmus, clear conjunctiva, non-icteric sclera HENT: Normocephalic, atraumatic, moist mucus membranes, oropharynx clear without exudates NECK: , Full range of motion, normal appearance PULMONARY: Clear to auscultation without wheezes, rhonchi, or rales, normal excursion, no accessory muscle use and no stridor CARDIOVASCULAR: Regular rate, rhythm, normal S1 and S2. No appreciated murmurs, rubs or gallops. Strong radial pulses with intact distal perfusion. No lower extremity edema GASTROINTESTINAL: Soft, active bowel sounds throughout, tenderness palpation of the suprapubic and left lower quadrant region, non-distended, no palpable masses, no rebound; guarding with palpation of tender regions No hepatosplenomeg carri GENITOURINARY: MUSCULOSKELETAL: Extremities have no gross deformity, no edema, redness, or swe lling. No calf swelling NEUROLOGIC:_a/o x 3, GCS 15, normal mentation and speech. Moves all extremities x 4 without motor or sensory deficit PSYCHIATRIC:_normal mood and affect, thought process is clear and linear (Joy Tamayo) Course Vital Signs 09/12/24 09/12/24 16:00 22:12 Temperature 98.3 F 97.6 F Pulse Rate 104 H 87 Respiratory 16 18 Rate Blood Pressure 127/82 126/91 O2 Sat by Pulse 96 95 Oximetry Medical Decision Making - Lab Data Result diagrams: 09/12/24 16:22 09/12/24 16:22 <Troy Quiroga - Last Filed: 09/12/24 21:48> - Lab Data Result diagrams: 09/12/24 16:22 09/12/24 16:22 <Joy Tamayo - Last Filed: 09/15/24 10:49> - Medical Decision Making was pt. sent in by a medical professional or institution (, PA, MARKETING WRITER, urgent care, hospital, or usp...) When possible be specific @ -Spoke with Dr. Springer who called and discussed patient concerns for new abscess or worsening of diverticulitis, recommended CT abdomen pelvis with oral contrast Did you speak to anyone other than the patient for history (EMS, parent, family, police, friend...)? What history was obtained from this source @ -Spoke with patient's in addition to patient Did you review nursing and triage notes (agree or disagree)? Why? @ -[I reviewed and agree with nursing and triage notes] Were old charts reviewed (outside hosp., previous admission, EMS record, old EKG, old radiological studies, urgent care reports/EKG's, usp records)? Report findings @ reviewed CT from 09/07/2024, showed decreasing inflammatory changes from previous with contained rupture significant residual stranding soft tissue in that region no drainable organized fluid collection. Reviewed discharge summary from 09/21/2024 admission when patient was admitted for diverticulitis with contained rupture and phlegmon, patient was discharged on IV Zosyn 3.375 g every 8 hour Differential Diagnosis (chest pain, altered mental status, abdominal pain women, abdominal pain men, vaginal bleeding, weakness, fever, dyspnea, syncope, headache, dizziness, GI bleed, back pain, seizure, CVA, palpatations, mental health, musculoskeletal)? @ -Differential Abdominal Pain Men: Appendicitis, cholecystitis, diverticulosis, ischemic bowel, pancreatitis, hepatitis, UTI, gastroenteritis, AAA, incarcerated hernia, bowel obstruction, constipation, inflammatory bowel, hepatitis, peptic ulcer disease, splenic infarction, perforated viscus, this is not meant to be an all-inclusive list EKG interpreted by me (3pts min.). @ -[As above] X-rays interpreted by me (1pt min.). @ -[None done] U/S interpreted by me (1pt. min.). @ -[None done] What testing was considered but not performed or refused? (CT, X-rays, U/S, labs)? Why? @ -[None] What meds were considered but not given or refused? Why? @ -[None] Did you discuss the management of the patient with other professionals (professionals i.e. DrAmairani, PA, MARKETING WRITER, lab, RT, psych nurse, social science professor, retail experience specialist, teacher, intelligence officer, geriatric case manager)? Give summary @ -Case dscussed [facility] Dr. Ramirez, who called the ED to inform us of sending patient in for additional imaging Was smoking cessation discussed for >3mins.? @ -[No] Was critical care preformed (if so, how long)? @ -[No] Were there social determinants of health that impacted care today? How? (Homelessness, low income, unemployed, alcoholism, drug addiction, transportation, low edu. Level, literacy, decrease access to med. care, fpc, rehab)? @ -[No] Was there de-escalation of care discussed even if they declined (Discuss DNR or withdrawal of care, Hospice)? @ -[No] What co-morbidities impacted this encounter? (DM, HTN, Smoking, COPD, CAD, Cancer, CVA, ARF, Chemo, Hep., AIDS, mental health diagnosis, sleep apnea, morbid obesity)? @ -[None] Was patient admitted / discharged? Hospital course, mention meds given and route, prescriptions, significant lab abnormalities, going to OR and other pertinent info. @ -[hospital course] Patient is a 59-year-old gentleman past medical history recent admission for diverticulitis with colonic perforation, currently with PICC line on IV antibiotics presenting for lower abdominal pain after being sent in by his PCP, Dr. Ramirez. On my assessment patient is well-appearing and in no acute distress. Tachycardic on arrival with heart rate 104, afebrile 98.3 F oral temp, RR 16, blood pressure 127/82, pulse ox 96% on room air. Exam significant for well- appearing 59-year-old male in no acute distress. Suprapubic and left lower quadrant tenderness to palpation, guarding with palpation of these areas, abdomen is soft and nondistended with active bowel sounds. Plan for CT of the pelvis with oral and IV contrast, lipase, amylase CBC, CMP urinalysis, pain control. Pt agreeable with POC. Labs and imaging reviewed. Grossly within normal limits. Abnormal values not concerning for acute pathology related to presenting complaint. Currently pending completion of CT. Updated patient and reassesed. Pt states improved somewhat however is still painful. Ordered additional pain control. CT obtained. I reviewed imaging and do not see free air or evidence of perforation or visible abscess formation. Pending read by radiologist, patient signed out to oncoming physician, Dr. Quiroga. Please see his note above regarding further details of care and final disposition. (Joy Tamayo) - Lab Data Lab Results 09/12/24 09/12/24 09/12/24 Range/Units 16:15 16:22 16:22 WBC 6.0 (3.8-10.6) k/uL RBC 4.81 (4.30-5.90) m/uL Hgb 13.5 (13.0-17.5) gm/dL Hct 43.4 (39.0-53.0) % MCV 90.3 (80.0-100.0) fL MCH 28.2 (25.0-35.0) pg MCHC 31.2 (31.0-37.0) g/dL RDW 14.0 (11.5-15.5) % Plt Count 306 (150-450) k/uL MPV 7.2 Neutrophils % 63 % Lymphocytes % 24 % Monocytes % 6 % Eosinophils % 4 % Basophils % 1 % Neutrophils # 3.8 (1.3-7.7) k/uL Lymphocytes # 1.5 (1.0-4.8) k/uL Monocytes # 0.4 (0-1.0) k/uL Eosinophils # 0.2 (0-0.7) k/uL Basophils # 0.1 (0-0.2) k/uL PT 10.1 (10.0-12.5) sec INR 0.9 (<1.2) APTT 25.1 (22.0-30.0) sec Sodium (137-145) mmol/L Potassium (3.5-5.1) mmol/L Chloride (98-107) mmol/L Carbon Dioxide (22-30) mmol/L Anion Gap mmol/L BUN (9-20) mg/dL Creatinine (0.66-1.25) mg/dL Est GFR (CKD-EPI)AfAm (>60 ml/min/1.73 sqM) Est GFR (CKD-EPI)NonAf (>60 ml/min/1.73 sqM) Glucose (74-99) mg/dL Plasma Lactic Acid Elías (0.7-2.0) mmol/L Calcium (8.4-10.2) mg/dL Total Bilirubin (0.2-1.3) mg/dL AST (17-59) U/L ALT (4-49) U/L Alkaline Phosphatase (38-126) U/L Total Protein (6.3-8.2) g/dL Albumin (3.5-5.0) g/dL Amylase (30-110) U/L Lipase (23-300) U/L Urine Color Colorless Urine Appearance Clear (Clear) Urine pH 5.0 (5.0-8.0) Ur Specific Stanton 1.024 (1.001-1.035) Urine Protein Negative (Negative) Urine Glucose (UA) Negative (Negative) Urine Ketones Negative (Negative) Urine Blood Negative (Negative) Urine Nitrite Negative (Negative) Urine Bilirubin Negative (Negative) Urine Urobilinogen <2.0 (<2.0) mg/dL Ur Leukocyte Esterase Negative (Negative) 09/12/24 09/12/24 Range/Units 16:22 16:22 WBC (3.8-10.6) k/uL RBC (4.30-5.90) m/uL Hgb (13.0-17.5) gm/dL Hct (39.0-53.0) % MCV (80.0-100.0) fL MCH (25.0-35.0) pg MCHC (31.0-37.0) g/dL RDW (11.5-15.5) % Plt Count (150-450) k/uL MPV Neutrophils % % Lymphocytes % % Monocytes % % Eosinophils % % Basophils % % Neutrophils # (1.3-7.7) k/uL Lymphocytes # (1.0-4.8) k/uL Monocytes # (0-1.0) k/uL Eosinophils # (0-0.7) k/uL Basophils # (0-0.2) k/uL PT (10.0-12.5) sec INR (<1.2) APTT (22.0-30.0) sec Sodium 138 (137-145) mmol/L Potassium 4.0 (3.5-5.1) mmol/L Chloride 108 H (98-107) mmol/L Carbon Dioxide 24 (22-30) mmol/L Anion Gap 6 mmol/L BUN 19 (9-20) mg/dL Creatinine 0.78 (0.66-1.25) mg/dL Est GFR (CKD-EPI)AfAm >90 (>60 ml/min/1.73 sqM) Est GFR (CKD-EPI)NonAf >90 (>60 ml/min/1.73 sqM) Glucose 122 H (74-99) mg/dL Plasma Lactic Acid Elías 0.9 (0.7-2.0) mmol/L Calcium 9.9 (8.4-10.2) mg/dL Total Bilirubin 0.4 (0.2-1.3) mg/dL AST 18 (17-59) U/L ALT 18 (4-49) U/L Alkaline Phosphatase 90 (38-126) U/L Total Protein 7.1 (6.3-8.2) g/dL Albumin 4.4 (3.5-5.0) g/dL Amylase 48 (30-110) U/L Lipase 67 (23-300) U/L Urine Color Urine Appearance (Clear) Urine pH (5.0-8.0) Ur Specific Stanton (1.001-1.035) Urine Protein (Negative) Urine Glucose (UA) (Negative) Urine Ketones (Negative) Urine Blood (Negative) Urine Nitrite (Negative) Urine Bilirubin (Negative) Urine Urobilinogen (<2.0) mg/dL Ur Leukocyte Esterase (Negative) Disposition Is patient prescribed a controlled substance at d/c from ED?: No <Troy Quiroga - Last Filed: 09/12/24 21:48> <Joy Tamayo - Last Filed: 09/15/24 10:49> Clinical Impression: Diverticulitis Disposition: HOME SELF-CARE Condition: Good Instructions (If sedation given, give patient instructions): Diverticulitis (DC) Prescriptions: oxyCODONE HCL [OxyIR] 5 mg PO Q6H PRN 3 Days #12 tab PRN Reason: Breakthrough Pain Referrals: Wade Krueger MD [Primary Care Provider] - 1-2 days
--- NOTE | 2024-09-12 21:13 | CT ---
EXAMINATION TYPE: CT abdomen pelvis w con DATE OF EXAM: 09/12/2024 COMPARISON: 09/07/2024 HISTORY: 59-year-old male with pain, diverticulitis, abscess formation TECHNIQUE: Contiguous axial scanning of the abdomen and pelvis following administration of 100 ml Iso dinora 300 IV contrast. Delayed images through the kidneys and coronal/sagittal reconstructions perform ed. CT DLP: 831.6 mGycm Automated exposure control for dose reduction was used. FINDINGS: The heart is normal size without pericardial effusion. Possible mild circumferential wall thickening distal esophagus. Correlate for any symptoms of mild es ophagitis. Strandy atelectasis at the posterior lung bases. No pleural effusion. Liver enlarged at 19.6 cm. Portal venous system is patent. No biliary ductal dilatation. Gallbladder, adrenal glands, left kidney, spleen with tiny anterior splenule, and pancreas within nor mal limits. Right kidney renal cortical cyst measuring 2.5 cm. Moderate atherosclerotic calcifications infrarenal abdominal aorta and iliac redemonstrated fusiform ectasia infrarenal abdominal aorta to 2.6 cm. No dilated small bowel. Normal appendix. Mild scattered stool. Sigmoid diverticulosis. Focal irregular extraluminal collectio n redemonstrated extending superiorly from the mid sigmoid colon mesentery. This measures approximate ly 4.0 x 2.9 cm versus 4.0 x 3.0 cm, previously. Small foci of extraluminal air are present here with mild inflammatory fat stranding. Overall less fullness compared to recent prior. Bladder urine distended. Prostate gland with central calcifications and mild enlargement of the 4.4 c m. No abnormal fluid collection in the pelvis or pelvic lymphadenopathy. Bones: Mild degenerative change of the hips. Mild degenerative disc disease throughout the visualized spine. IMPRESSION: FAIRLY SIMILAR INFLAMMATORY COLLECTION COMPOSED OF INFLAMED TISSUE AND SMALL FOCI OF EXTRALUMINAL AIR LOCATED SUPERIOR TO THE MID SIGMOID COLON. Despite the relatively similar size at 4.0 cm, there is o verall decreasing fullness to the inflammatory collection/contained leak. 2. Mid sigmoid diverticulosis. [facility], , 09/12/2024 9:10 PM
[2024-09-12 22:22] VITALS: BP 126/91; PULSE 87; RESP 18; TEMP 97.6
== END 2024-09-12 22:22 | disposition home or self-care (01) ==
LOC: EC 15:52
CPT/HCPCS: 36415; 74177; 80053; 81003; 82150; 83605; 83690; 85025; 85610; 85730; 87040; 96361; 96374; 96376; 99285

== ENCOUNTER 2024-09-20 10:54 | Day surgery (SDC) | payer OTHER ==
[~2024-09-20 10:54] MED LIST: LIDOCAINE 1% (10MG/ML) FOR IV START INTRADERMA PRN
[2024-09-20] MEDS: IV FLUID CONTINUATION 1,000 ML IV ONE (11:17)
[2024-09-20 11:19] VITALS: TEMP 97.8
[2024-09-20] MEDS: LACTATED RINGERS 1,000 ML IV SCH (11:26)
[2024-09-20] MEDS ORDERED: LIDOCAINE 2% (PF) 20 MG/ML 5 ML VIAL ONE (11:40)
[2024-09-20] MEDS ORDERED: PROPOFOL 10 MG/ML 20 ML VIAL IV ONE (11:40)
--- NOTE | 2024-09-20 11:43 | P.HPADDEND ---
H&P Addendum H&P Addendum Date: 09/20/24 Spoke with patient after his office appointment last week. CAT scan reviewed and still shows inflammatory changes. Will proceed with colonoscopy today. Further recommendations to follow. Risks of bleeding and bowel perforation again reviewed. He agrees and wishes to proceed.
--- NOTE | 2024-09-20 12:01 | P.PCN ---
Date of Procedure: 09/20/24 Procedure(s) Performed: PREOPERATIVE DIAGNOSIS: Diverticulitis POSTOPERATIVE DIAGNOSIS: Diverticulosis, sigmoid polyp x 2 PROCEDURE: Colonoscopy with snare polypectomy ANESTHESIA: MAC SURGEON: Wade Krueger M.D. SPECIMENS: Polyps ENDOSCOPIC PROCEDURE: The patient was placed on the endoscopy table in the left decubitus position. The Olympus colonoscope was inserted into the anus and passed under direct visualization to the base of the cecum. The appendiceal orifice was visualized. From that point the scope was slowly withdrawn inspecting all surfaces carefully. There were no neoplastic inflammatory or polypoid lesions throughout the cecum, ascending, transverse, or descending colon. In the sigmoid colon distally there were 2 small polyps both removed using the snare with cautery technique. The remainder of the sigmoid and rectum was free of polyps. In the sigmoid colon there was mild luminal narrowing consistent with recent diverticulitis. There was scattered diverticulosis. Digital rectal examination was normal. The patient was taken to the recovery room in stable condition per anesthesia guidelines. RECOMMENDATIONS: Await biopsy results. Will discuss elective resection with patient.
[2024-09-20 12:08] VITALS: RESP 14
[2024-09-20 12:19] VITALS: BP 101/86; PULSE 87
== END 2024-09-20 12:36 | disposition home or self-care (01) ==
LOC: ORWHC2ENDO 10:54
PROVIDERS: ATTEND Surgery
DX: K57.30 Diverticulosis of large intestine without perforation or abscess without bleeding (principal); K63.5 Polyp of colon; K56.699 Other intestinal obstruction unspecified as to partial versus complete obstruction; Z87.19 Personal history of other diseases of the digestive system; F17.210 Nicotine dependence, cigarettes, uncomplicated
CPT/HCPCS: 88305; 45385; J2704; J2003

== ENCOUNTER 2024-09-25 19:58 | Emergency (ER) | payer OTHER ==
[2024-09-25 20:06] VITALS: RESP 20; TEMP 98.5
--- NOTE | 2024-09-25 20:29 | ED ---
Skin/Abscess/FB HPI - General Chief complaint: Skin/Abscess/Foreign Body Stated complaint: Rash Time Seen by Provider: 09/25/24 20:14 Source: patient, RN notes reviewed, old records reviewed Mode of arrival: ambulatory Limitations: no limitations - History of Present Illness Initial comments: This is a 59-year-old male who presents with significant urticarial rash. Patient has rash throughout entire body raised and significantly itchy hot and red. Patient said the rash for a few days now, did start IV antibiotics about oh a month ago with no reaction, patient did recently have a procedure which he did have exposure to other medications. Patient has no significant history of allergy no other complaints. Current currently with positive diverticulitis and surgery scheduled MD complaint: rash -: days(s) Location: generalized Severity: severe Severity scale (1-10): 9 Consistency: constant Improves with: none Worsens with: none Context: none Associated symptoms: denies other symptoms - Related Data Home Medications Medication Instructions Recorded Confirmed oxyCODONE HCL [Roxicodone] 10 mg PO BID PRN 09/20/24 09/20/24 Previous Rx's Medication Instructions Recorded Piperacillin-Tazobactam [Zosyn] 3.375 gm IVPB Q8H each 08/29/24 Allergies Allergy/AdvReac Type Severity Reaction Status Date / Time No Known Allergies Allergy Verified 09/25/24 20:06 Review of Systems ROS Statement: Those systems with pertinent positive or pertinent negative responses have been documented in the HPI. ROS Other: All systems not noted in ROS Statement are negative. Past Medical History Additional Past Medical History / Comment(s): colon rupture- treated w/ abx. diverticulitis since 07/16. Meningitis as 1976 History of Any Multi-Drug Resistant Organisms: None Reported Past Surgical History: No Surgical Hx Reported Additional Past Surgical History / Comment(s): colon rupture. repairr of all tendons on rt foreare Past Anesthesia/Blood Transfusion Reactions: No Reported Reaction Past Psychological History: No Psychological Hx Reported Smoking Status: Current every day smoker, Heavy tobacco smoker Past Alcohol Use History: None Reported Past Drug Use History: Marijuana - Past Family History Father Family Medical History: No Reported History General Exam Limitations: no limitations General appearance: alert, in no apparent distress Head exam: Present: atraumatic, normocephalic, normal inspection Eye exam: Present: normal appearance, PERRL, EOMI. Absent: scleral icterus, conjunctival injection, periorbital swelling ENT exam: Present: normal exam, mucous membranes moist Neck exam: Present: normal inspection. Absent: tenderness, meningismus, lymphad enopathy Respiratory exam: Present: normal lung sounds bilaterally. Absent: respiratory distress, wheezes, rales, rhonchi, stridor Cardiovascular Exam: Present: regular rate, normal rhythm, normal heart sounds. Absent: systolic murmur, diastolic murmur, rubs, gallop, clicks GI/Abdominal exam: Present: soft, normal bowel sounds. Absent: distended, tenderness, guarding, rebound, rigid Extremities exam: Present: normal inspection, full ROM, normal capillary refill. Absent: tenderness, pedal edema, joint swelling, calf tenderness Back exam: Present: normal inspection Neurological exam: Present: alert, oriented X3, CN II-XII intact Psychiatric exam: Present: normal affect, normal mood Skin exam: Present: warm, dry, intact, normal color. Absent: rash Course Vital Signs 09/25/24 20:04 Temperature 98.5 F Pulse Rate 129 H Respiratory 20 Rate Blood Pressure 138/77 O2 Sat by Pulse 96 Oximetry - Reevaluation(s) Reevaluation #1: 09/25/24 20:28 Medical records reviewed Reevaluation #2: 09/25/24 20:28 Patient symptoms unchanged Reevaluation #3: 09/25/24 20:28 Patient informed of results and questions answered Reevaluation #4: Was pt. sent in by a medical professional or institution (, PA, AIRBORNE OPERATIONS MANAGER, urgent care, hospital, or skilled nursing...) When possible be specific @ -no Did you speak to anyone other than the patient for history (EMS, parent, family, police, friend...)? What history was obtained from this source @ -no Did you review nursing and triage notes (agree or disagree)? Why? @ -agree Are old charts reviewed (outside hosp., previous admission, EMS record, old EKG, old radiological studies, urgent care reports/EKG's, skilled nursing records)? Report findings @ -yes Differential Diagnosis (chest pain, altered mental status, abdominal pain women, abdominal pain men, vaginal bleeding, weakness, fever, dyspnea, syncope, headache, dizziness, GI bleed, back pain, seizure, CVA, palpatations, mental health, musculoskeletal)? @ -prior EKG interpreted by me (3pts min.). @ -yes X-rays interpreted by me (1pt min.). @ -yes negative for acute disease CT interpreted by me (1pt min.). @ -no U/S interpreted by me (1pt. min.). @ -no What testing was considered but not performed or refused? (CT, X-rays, U/S, labs)? Why? @ -none What meds were considered but not given or refused? Why? @ -none Did you discuss the management of the patient with other professionals (selin coy i.e. , PA, AIRBORNE OPERATIONS MANAGER, lab, RT, psych nurse, social media strategist, environmental engineer, teacher, admitting officer, case monitor)? Give summary @ -no Was smoking cessation discussed for >3mins.? @ -no Was critical care preformed (if so, how long)? @ -no Were there social determinants of health that impacted care today? How? (Homelessness, low income, unemployed, alcoholism, drug addiction, transportation, low edu. Level, literacy, decrease access to med. care, intermediate, rehab)? @ -none Was there de-escalation of care discussed even if they declined (Discuss DNR or withdrawal of care, Hospice)? DNR status @ -no What co-morbidities impacted this encounter? (DM, HTN, Smoking, COPD, CAD, Cancer, CVA, ARF, Chemo, Hep., AIDS, mental health diagnosis, sleep apnea, morbid obesity)? @ -none Was patient admitted / discharged? Hospital course, mention meds given and route, prescriptions, significant lab abnormalities, going to OR and other pertinent info. @ - Undiagnosed new problem with uncertain prognosis? @ -no Drug Therapy requiring intensive monitoring for toxicity (Heparin, Nitro, Insulin, Cardizem)? @ -no Were any procedures done? @ -no Diagnosis/symptom? @ - Acute, or Chronic, or Acute on Chronic? @ -Acute Uncomplicated (without systemic symptoms) or Complicated (systemic symptoms)? @ -Complicated Side effects of treatment? @ -no Exacerbation, Progression, or Severe Exacerbation? @ -exacerbation Poses a threat to life or bodily function? How? (Chest pain, [place], [place], pneumonia, PE, COPD, DKA, ARF, appy, cholecystitis, CVA, Diverticulitis, Homicidal, Suicidal, threat to staff... and all critical care pts) @ -yes Medical Decision Making - Medical Decision Making 59 male to ER for evaluation of urticarial rash. Patient's rash is controlled here with antihistamines and can be discharged home Disposition Clinical Impression: Urticaria, Allergic reaction Disposition: HOME SELF-CARE Condition: Good Instructions (If sedation given, give patient instructions): Urticaria (ED) Is patient prescribed a controlled substance at d/c from ED?: No Referrals: Griselda Dutton MD [Primary Care Provider] - 1-2 days Time of Disposition: 20:30
[2024-09-25] MEDS: DEXAMETHASONE SOD PHOSPHATE 10 MG/ML 1 ML VIAL IM STA (20:43)
[2024-09-25] MEDS: FAMOTIDINE 20 MG TAB PO STA (20:43)
[2024-09-25] MEDS: diphenhydrAMINE 25 MG CAP PO STA (20:43)
[2024-09-25] MEDS: hydrOXYzine HCL 25 MG TAB PO STA (20:44)
[2024-09-25 20:52] VITALS: BP 121/76; PULSE 111
== END 2024-09-25 20:49 | disposition home or self-care (01) ==
LOC: EC 19:58
DX: L50.0 Allergic urticaria (principal); F17.200 Nicotine dependence, unspecified, uncomplicated
CPT/HCPCS: 99282 ×2; 96372; J1100

== ENCOUNTER 2024-09-29 10:39 | Inpatient (IN) | payer OTHER ==
[~2024-09-29 10:39] MED LIST changes: +HYDROmorphone 0.5 MG/0.5 ML SYRINGE IVP PRN
[2024-09-29 11:15] LABS: Glucose,Whole Blood 118 mg/dL (70-110)
[2024-09-29] MEDS: LACTATED RINGERS 1,000 ML IV SCH (11:17)
[2024-09-29] MEDS: ALVIMOPAN 12 MG CAPSULE PO PRN (11:22)
[2024-09-29] MEDS: ACETAMINOPHEN TAB 500 MG TAB PO PRN (11:22)
[2024-09-29] MEDS: ONDANSETRON 4 MG/2 ML VIAL IVP PRN (11:23)
[2024-09-29] MEDS: DEXAMETHASONE SOD PHOSPHATE 4 MG/ML 1 ML VIAL IV ONE (11:23)
[2024-09-29] MEDS: IV FLUID CONTINUATION 1,000 ML IV ONE ×3 (11:26→16:45)
[2024-09-29] MEDS: MIDAZOLAM 2 MG/2 ML VIAL IV ONE (11:36)
[2024-09-29] MEDS: HEPARIN SODIUM,PORCINE 5,000 UNIT/ML 1 ML VIAL SQ PRN (11:45)
--- NOTE | 2024-09-29 12:12 | P.HPADDEND ---
H&P Addendum H&P Addendum Date: 09/29/24 Patient here today for elective sigmoid resection. Underwent recent colonoscopy showing no evidence of malignancy. Patient still having pain. Options again reviewed. Patient would like to proceed with sigmoid colectomy locally. Will proceed with open sigmoid colectomy with possible colostomy at this time. Risks of bleeding, infection, leak, abscess, ureteral injury, bladder injury, possible need for ostomy, hernia all discussed. Patient understands and wishes to proceed.
[2024-09-29] MEDS ORDERED: SUCCINYLCHOLINE CHLORIDE 200 MG/10 ML VIAL IV ONE (12:25)
[2024-09-29] MEDS ORDERED: GLUCAGON 1 MG/ML VIAL ONE (12:25)
[2024-09-29] MEDS ORDERED: PHENYLEPHRINE 10 MG/ML VIAL ONE (12:25)
[2024-09-29] MEDS ORDERED: GLYCOPYRROLATE 0.2 MG/ML 2 ML VIAL ONE (12:25)
[2024-09-29] MEDS ORDERED: PROPOFOL 10 MG/ML 20 ML VIAL IV ONE (12:25)
[2024-09-29] MEDS ORDERED: NEOSTIGMINE 1 MG/ML 10 ML VIAL ONE (12:25)
[2024-09-29] MEDS ORDERED: MIDAZOLAM 2 MG/2 ML VIAL ONE (12:25)
[2024-09-29] MEDS ORDERED: fentaNYL (PF) 50 MCG/ML 2 ML AMP ONE (12:25)
[2024-09-29] MEDS ORDERED: HYDROmorphone (PF) 1 MG/ML ONE (12:25)
[2024-09-29] MEDS ORDERED: LIDOCAINE 1% INJ 10MG/ML (20 ML MDV) ONE (12:25)
[2024-09-29] MEDS ORDERED: ROCURONIUM 10 MG/ML (5 ML VIAL) IV ONE (12:25)
[2024-09-29] MEDS: metroNIDAZOLE-NS PMX 500 MG in SALINE 1 100ML.BAG IVPB PRN (12:45)
[2024-09-29] MEDS ORDERED: NALOXONE 0.4 MG/ML 1 ML VIAL IV PRN (12:58)
[2024-09-29] MEDS: LACTATED RINGERS 1,000 ML IV ONE (13:34)
[2024-09-29] MEDS: ROPIVACAINE 250 MG, HYDROMORPHONE (PF) 5 MG in SODIUM CHLORIDE 0.9% 200 ML EPIDURAL PRN (14:53)
[2024-09-29] MEDS ORDERED: METOCLOPRAMIDE 5 MG/ML 2 ML VIAL IVP PRN (15:06)
[2024-09-29] MEDS ORDERED: BENZOCAINE/MENTHOL LOZENG 1 EACH LOZENGE MUCOUS MEM PRN (15:06)
--- NOTE | 2024-09-29 15:15 | P.OP ---
Date of Procedure: 09/29/24 Procedure(s) Performed: PREOPERATIVE DIAGNOSIS: Diverticulitis POSTOPERATIVE DIAGNOSIS: Same PROCEDURE: Low anterior sigmoid resection SURGEON: Evans EBL: 25 mL ANESTHESIA: General COMPLICATIONS: None OPERATIVE PROCEDURE: Patient placed on the operative table in the supine position. The patient was placed under general anesthesia. Preoperative Nichole catheter was placed. The patient was then placed in lithotomy. The abdomen was prepped and draped in usual sterile fashion. A vertical incision was made extending from the supraumbilical location to the suprapubic location. The fascia was divided as well. The Bookwalter retractor was utilized. The patient's phlegmon was still present along the right side of the sigmoid mesentery. There was an area of inflammatory change measuring approximately 3 cm in diameter. There was a loop of small bowel that was the terminal ileum that was stuck to this area. Thankfully the area of inflammatory change involved mostly in the mesentery of the small bowel. I did clamp the small bowel distally and milked small bowel contents to the area of inflammation and there was no leak seen. The patient's appendix was in the vicinity as well and I decided to remove the appendix. The mesoappendix was divided using LigaSure and the base of the appendix was divided using a linear 75 stapler. A site was chosen along the proximal sigmoid colon proximal to the inflammatory segment. A small colotomy was created and the sizers were utilized to evaluate the luminal diameter of the proximal colon. The colon appeared grossly narrow all the way up to the splenic flexure. The 25 EEA stapler was chosen for this region. The 25 EEA anvil was advanced into the lumen of the sigmoid colon and milked proximally. The bowel was then divided using a linear 75 stapler and the anvil was brought out adjacent to the staple line. A 3-0 silk pursestring suture was placed around the anvil at that location. The mesentery was divided using the LigaSure device. Dissection took place down to the proximal rectum where the tenia was noted to splay out. The proximal rectum was divided using the contour stapler. The specimen was passed off the field at that point. No signs of bleeding at either staple line was noted after irrigation. The stapler was then inserted into the anus and brought up to the staple line. The obturator was brought out anterior to the staple line. The 2 portions of the stapler were connected to one another and subsequently tightened and fired. The bowel was clamped proximal to the anastomosis. The rigid sigmoidoscope was utilized to fill the anastomotic site nicely with air. There was saline in the pelvis at this time. No evidence of leak was seen. The abdomen was irrigated with saline. The liver, stomach, visualized colon, and small bowel appeared normal. The midline fascia was then reapproximated using 2 separate double-stranded #1 PDS sutures. The subcutaneous tissues were closed using 2 oh and 3-0 Vicryl sutures. The skin was then closed using nando. Sterile dressings were then applied. DISPOSITION: Stable to recovery room
[2024-09-29] MEDS: MEPERIDINE 50 MG/ML SYRINGE IVP STA (15:43)
[2024-09-29] MEDS: D5-0.45% NACL WITH KCL 20MEQ/L 1,000 ML IV SCH (18:00)
[2024-09-29] MEDS: droPERidol 5 MG/2 ML VIAL IVP ONE (18:18)
[2024-09-29] MEDS: HEPARIN SODIUM,PORCINE 5,000 UNIT/ML 1 ML VIAL SQ SCH (18:23)
[2024-09-29] MEDS: FAMOTIDINE 20 MG/2 ML VIAL IV SCH (19:48)
[2024-09-29] MEDS: NICOTINE 21MG/24HR PATCH TRANSDERM SCH (19:48)
--- NOTE | 2024-09-29 20:23 | P.CONS ---
History of Present Illness - Reason for Consult Consult date: 09/29/24 Postop medical management - History of Present Illness Reason for consult: Postop medical management History of present illness; 59-year-old male with past medical history of diverticulitis who is presenting for elective/scheduled low anterior sigmoid resection. Patient has been having recent flares of diverticulitis, eventually prompting a colonoscopy which showed no evidence of malignancy but the patient was still having pain so after discussing his options outpatient with his surgeon Dr. Alonso he decided to proceed with an elective sigmoid colectomy. Patient is now postop with no known surgical complications. Patient is sitting up in bed resting with no complaints of pain. Patient reports generalized itchiness, but denies fever, chills, weight loss, chest pain, palpitations, diaphoresis, dyspnea, cough, nausea, vomiting, constipation, diarrhea, abdominal pain, weakness, myalgia, dizziness, headache, and dysuria. Patient was on antibiotics outpatient which caused rash that has somewhat improved since discontinuing antibiotics. Patient was started on Prednisone 50 mg po qd at home. Vitals: BP 116/72, pulse rate 80, respiratory rate 16, temperature 97.5, and O2 saturation 96 on 2 L nasal cannula Initial lab workup revealed glucose 118 REVIEW OF SYSTEMS: All systems reviewed, pertinent positives and negatives noted in HPI. All other symptoms are negative. PHYSICAL EXAMINATION: Vitals reviewed GENERAL: No acute distress. Well developed, well nourished. HEENT: Pupils are round and equally reacting to light. EOMI. No scleral icterus. Normocephalic, atraumatic. No pharyngeal erythema. No thyromegaly. CARDIOVASCULAR: S1 and S2 present. No murmurs, rubs, or gallops. PULMONARY: Chest is clear to auscultation, no wheezing, rhonchi, or crackles. ABDOMEN: Soft, nontender, nondistended, normoactive bowel sounds. No palpable organomegaly. Laparotomy surgical dressing in place, clean and dry with no evidence of drainage or surrounding erythema MUSCULOSKELETAL: No apparent joint swelling and deformities. EXTREMITIES: No apparent cyanosis, clubbing, or pedal edema. NEUROLOGICAL: The patient is alert and oriented x3, Gross neurological examination did not reveal any focal deficits. 5/5 strength bilateral UE and LE. SKIN: Shashank UEs and chest mild urticaria noted Assessment and plan 59-year-old male with past medical history of diverticulitis who is presenting for elective/scheduled low anterior sigmoid resection. Internal medicine consulted for postop medical management. Chronic Medical Conditions #Urticaria, gradually improving over past several days as per patient diphenhydramine 25 mg IVP every 6 hours or as needed ordered by Surg Team - Resume oral prednisone 50 mg po qd for now # History of diverticulitis s/p Low anterior sigmoid resection Recent admission for diverticulitis with sigmoid colon rupture treated with antibiotics at that time Follow-up CBC and CMP in the a.m. -Pain management and DVT prophylaxis per primary surgical team F: IV D5half NSKCl 20 125 cc/h E: Replete as needed N: N.p.o. DVT ppx: per primary surgical team Code status: Full code Patient is stable from medical stand point Follow up CBC and CMP in AM Past Medical History Additional Past Medical History / Comment(s): VISIT TO DR. PENG ON 09/26/24, HE REMOVED IV PORT AND ORDERED ORAL ANTIBIOTICS. colon rupture- treated w/ abx. diverticulitis since 07/16. Meningitis as 1976 History of Any Multi-Drug Resistant Organisms: None Reported Past Surgical History: No Surgical Hx Reported Additional Past Surgical History / Comment(s): colon rupture. repairr of all tendons on rt foreare Past Anesthesia/Blood Transfusion Reactions: No Reported Reaction Past Psychological History: No Psychological Hx Reported Smoking Status: Current every day smoker Past Alcohol Use History: None Reported Additional Past Alcohol Use History / Comment(s): 2 ppks/day/50 yrs Past Drug Use History: Marijuana Additional Drug Use History / Comment(s): refrain 24 hours prior to procedure - Past Family History Father Family Medical History: No Reported History Medications and Allergies Home Medications Medication Instructions Recorded Confirmed Type oxyCODONE HCL [Roxicodone] 10 mg PO BID PRN 09/20/24 09/26/24 History Famotidine [Pepcid] 40 mg PO BID #28 tablet 09/25/24 09/26/24 Rx diphenhydrAMINE [Benadryl] 50 mg PO TID #30 capsule 09/25/24 09/26/24 Rx hydrOXYzine HCL [Atarax] 25 mg PO TID PRN #15 tab 09/25/24 09/26/24 Rx predniSONE 50 mg PO DAILY #5 tab 09/25/24 09/26/24 Rx Allergies Allergy/AdvReac Type Severity Reaction Status Date / Time No Known Allergies Allergy Verified 09/29/24 11:15 Physical Exam Vitals: Vital Signs Temp Pulse Resp BP Pulse Ox 09/29/24 17:40 97.5 F L 80 16 116/72 96 09/29/24 17:00 79 16 112/63 98 09/29/24 16:45 80 16 110/67 99 09/29/24 16:26 79 16 111/58 98 09/29/24 16:11 78 16 118/74 94 L 09/29/24 15:54 79 18 139/72 93 L 09/29/24 15:39 81 16 148/70 94 L 09/29/24 15:24 82 18 151/79 98 09/29/24 15:08 80 16 144/80 98 09/29/24 14:53 97.4 F L 86 12 142/85 99 09/29/24 11:45 85 16 105/65 98 09/29/24 10:59 98.1 F 97 16 137/67 98 Intake and Output 09/29/24 09/29/24 09/29/24 06:59 14:59 22:59 Intake Total 2050 311.867 Output Total 175 550 Balance 1875 -238.133 Intake: IV 0 300 Intake, IV Titration 11.867 Amount Ropivacaine 250 mg 11.867 Hydromorphone (Pf) 5 mg In Sodium Chloride 0.9% 200 ml @ Per Protocol EPIDURAL .Q0M PRN Rx#: [id number] Output: Urine 150 550 Estimated Blood Loss 25 Other: Weight 71.1 kg Results Labs: Abnormal Lab Results - Last 24 Hours (Table) 09/29/24 Range/Units 11:14 POC Glucose (mg/dL) 118 H (70-110) mg/dL
[2024-09-29] MEDS: diphenhydrAMINE 25 MG CAP PO STA (21:13)
[2024-09-29] MEDS: HYDROCORTISONE 1% CREAM 30 GM TUBE TOPICAL PRN (21:21)
[2024-09-29] MEDS: diphenhydrAMINE 50 MG/ML 1 ML VIAL IVP PRN (21:21)
[2024-09-30] MEDS: ALVIMOPAN 12 MG CAPSULE PO SCH (08:03)
[2024-09-30] MEDS: predniSONE 50 MG TAB PO SCH (08:03)
[2024-09-30 09:32] LABS: BUN/Creat Ratio 12.38 Ratio (12.00-20.00); Blood Urea Nitrogen 9.9 mg/dL (9.0-27.0); Calcium 9.1 mg/dL (8.7-10.3); Carbon Dioxide 30.1 mmol/L (21.6-31.8); Chloride 98 mmol/L (96-109); Glucose 138 mg/dL (70-110); Potassium 5.1 mmol/L (3.5-5.5); Sodium 136 mmol/L (135-145)
[2024-09-30 09:36] LABS: HCT 43.4 % (39.6-50.0); HGB 13.9 g/dL (13.0-17.0); MCH 28.4 pg (27.0-32.0); MCV 88.8 FL (80.0-97.0); Mean Platelet Volume 9.9 FL (9.5-12.2); NRBC Per 100 WBC 0 X 10*3/uL (0.00-0.01); Platelet Count 333 X 10*3/uL (140-440); RBC 4.89 X 10*6/uL (4.40-5.60); RDW 14.1 % (11.5-14.5); WBC 13.97 X 10*3/uL (4.50-10.00)
[2024-09-30 10:03] LABS: Basophils # (A) 0.12 X 10*3/uL (0.00-0.10); Basophils % (A) 0.9 %; Eosinophils # (A) 1.55 X 10*3/uL (0.04-0.35); Eosinophils % (A) 11.1 %; Lymphocytes # (A) 2.38 X 10*3/uL (0.90-5.00); Monocytes # (A) 1.83 X 10*3/uL (0.20-1.00); Monocytes % (A) 13.1 %; Neutrophils # (A) 7.97 X 10*3/uL (1.80-7.70)
[2024-09-30] MEDS: HYDROmorphone 2 MG/ML 1 ML SYRINGE IVP PRN (10:48)
--- NOTE | 2024-09-30 11:25 | P.PN ---
Progress Note - Text 09/30/24 631am 59-year-old male status post sigmoid colectomy by Dr. boyd, patient has an epidural catheter with a solution running at 10 cc an hour with a VAS of 10. I feel that the patient has unrealistic ideas in his head about pain control. Also believes that he wants to receive narcotics to the point where he is completely out of it. I instructed the nurse that if he feels that the epidural is not helping him we can remove the catheter and Dr. Vital can order a SLIP FILLER for him and and that might be more appropriate and helpful to the patient
--- NOTE | 2024-09-30 13:03 | P.PN ---
Subjective Progress Note Date: 09/30/24 SURGICAL PROGRESS NOTE CHIEF COMPLAINT: Diverticulitis HISTORY OF PRESENT ILLNESS: Patient postop day #1 status post lower anterior sigmoid resection. His pain is controlled. Epidural in place. Urine output adequate. Denies any nausea or vomiting. Afebrile. WBC elevated 13.97 Hgb 13.9 PHYSICAL EXAM: VITAL SIGNS: Reviewed. GENERAL: Well-developed in no acute distress. ABDOMEN: Soft. Nondistended. Incisional dressing clean dry and intact, minimal tenderness at incision site NEUROLOGIC: Alert and oriented. Cranial nerves II through XII grossly intact. ASSESSMENT: 1. Diverticulitis PLAN: -Keep patient n.p.o. -Continue epidural and Nichole catheter continue IV fluids -Repeat CBC in a.m. -Encourage patient to increase activity level -Encourage patient to use incentive spirometer -GI prophylaxis Pepcid and DVT prophylaxis subcu heparin Physician Systems Coordinator note has been reviewed by physician. Signing provider agrees with the documented findings, assessment, and plan of care. I have personally seen and examined the patient, reviewed the PLUMBER'S ASSISTANT /PAs history, exam and MDM and agree with the assessment and plan as written. Based on total visit time, I have performed more than 50% of the visit. As above: Patient doing fairly well. Mild discomfort. Patient is out of bed in the chair already. No bowel function yet. Begin clear liquids. Continue analgesics. Objective - Vital Signs Vital signs: Vital Signs Temp 98.4 F 09/30/24 06:57 Pulse 83 09/30/24 06:57 Resp 17 09/30/24 06:57 BP 122/63 09/30/24 06:57 Pulse Ox 90 L 09/30/24 06:57 FiO2 Intake & Output 09/29/24 09/30/24 09/30/24 18:59 06:59 18:59 Intake Total 2361.867 Output Total 725 1600 Balance 1636.867 -1600 Weight 71.1 kg Intake: IV 2350 Intake, IV Titration 11.867 Amount Ropivacaine 250 mg 11.867 Hydromorphone (Pf) 5 mg In Sodium Chloride 0.9% 200 ml @ Per Protocol EPIDURAL .Q0M PRN Rx#: [id number] Output: Urine 700 1600 Estimated Blood Loss 25 Other: Voiding Method Indwelling Catheter - Labs CBC & Chem 7: 09/30/24 03:54 09/30/24 03:54 Labs: Abnormal Lab Results - Last 24 Hours (Table) 09/30/24 09/30/24 Range/Units 03:54 03:54 WBC 13.97 H (4.50-10.00) X 10*3/uL Immature Gran # 0.12 H (0.00-0.04) X 10*3/uL Neutrophils # 7.97 H (1.80-7.70) X 10*3/uL Monocytes # 1.83 H (0.20-1.00) X 10*3/uL Eosinophils # 1.55 H (0.04-0.35) X 10*3/uL Basophils # 0.12 H (0.00-0.10) X 10*3/uL Glucose 138 H (70-110) mg/dL
--- NOTE | 2024-09-30 13:22 | P.PN ---
Subjective Progress Note Date: 09/30/24 59-year-old male with past medical history of diverticulitis who is presenting for elective/scheduled low anterior sigmoid resection. Underwent surgery with Dr. Krueger on 09/29. [facility] Physicians consulted for medical management of this patient. 09/30 Patient was seen and examined. Patient reports 7/10 uncontrolled pain. No nausea or vomiting. Not passing gas. CBC, BMP significant for WBC 13.97, glu 138. General: non toxic, no distress, appears at stated age Derm: warm, dry Head: atraumatic, normocephalic, symmetric Eyes: EOMI, no lid lag, anicteric sclera Mouth: no lip lesion, mucus membranes moist Cardiovascular: S1S2 reg, no murmur Lungs: Clear to auscultation bilaterally, no rhonchi, no rales , no accessory muscle use Neuro: no focal neuro deficits Psych: Alert, oriented, appropriate affect Based on my assessment of this patient, this patient meets a high complexity level of care. Leukocytosis: Likely reactive. Monitor fever profile. Urticaria: Benadryl 25 mg IV Q6H PRN. History of diverticulitis s/p Low anterior sigmoid resection: Management per surgery. Discontinue Prednisone. CODE STATUS: FULL CODE. DVT Prophylaxis: Heparin SQ GI Prophylaxis: Designated medical POA if patient is not able to make medical decisions for themselves: I have reviewed the following internet consultant notes: Surgery. I have reviewed the results of the following tests: CBC, BMP. I have ordered the following tests: I have discussed the care of this patient with the following independent historian: I have independently interpreted the following test below: Objective - Vital Signs Vital signs: Vital Signs Temp 98.4 F 09/30/24 06:57 Pulse 83 09/30/24 06:57 Resp 17 09/30/24 06:57 BP 122/63 09/30/24 06:57 Pulse Ox 90 L 09/30/24 06:57 FiO2 Intake & Output 09/29/24 09/30/24 09/30/24 18:59 06:59 18:59 Intake Total 2361.867 Output Total 725 1600 Balance 1636.867 -1600 Weight 71.1 kg Intake: IV 2350 Intake, IV Titration 11.867 Amount Ropivacaine 250 mg 11.867 Hydromorphone (Pf) 5 mg In Sodium Chloride 0.9% 200 ml @ Per Protocol EPIDURAL .Q0M PRN Rx#: [id number] Output: Urine 700 1600 Estimated Blood Loss 25 Other: Voiding Method Indwelling Catheter - Labs CBC & Chem 7: 09/30/24 03:54 09/30/24 03:54 Labs: Abnormal Lab Results - Last 24 Hours (Table) 09/29/24 Range/Units 11:14 POC Glucose (mg/dL) 118 H (70-110) mg/dL
[2024-09-30] MEDS: HYDROmorphone 2 MG/ML 1 ML SYRINGE IVP STA (13:27)
[2024-09-30] MEDS ORDERED: HYDROmorphone 1 MG/ML 1 ML SYRINGE IVP PRN (15:48)
[2024-09-30] MEDS: KETOROLAC 15 MG/ML 1 ML VIAL IVP SCH (17:23)
[2024-09-30] MEDS: HYDROmorphone 0.5 MG/0.5 ML SYRINGE IVP PRN (22:51)
[2024-10-01] MEDS ORDERED: ACETAMINOPHEN IV (For NPO) 1,000 MG in EMPTY BAG 1 BAG IVPB PRN
[2024-10-01] MEDS: ACETAMINOPHEN IV (For NPO) 1,000 MG in EMPTY BAG 1 BAG IVPB PRN ×2 (06:45)
--- NOTE | 2024-10-01 08:50 | P.PN ---
Subjective Progress Note Date: 10/01/24 59-year-old male with past medical history of diverticulitis who is presenting for elective/scheduled low anterior sigmoid resection. Underwent surgery with Dr. Krueger on 09/29. [facility] Physicians consulted for medical management of this patient. 09/30 Patient was seen and examined. Patient reports 06/01 uncontrolled pain. No nausea or vomiting. Not passing gas. CBC, BMP significant for WBC 13.97, glu 138. 10/01 Patient was seen and examined. Started on CLD. Continued abdominal pain. Not passing gas. No new labs done today. General: non toxic, no distress, appears at stated age Derm: warm, dry Head: atraumatic, normocephalic, symmetric Eyes: EOMI, no lid lag, anicteric sclera Mouth: no lip lesion, mucus membranes moist Cardiovascular: S1S2 reg, no murmur Lungs: Clear to auscultation bilaterally, no rhonchi, no rales , no accessory muscle use Neuro: no focal neuro deficits Psych: Alert, oriented, appropriate affect Based on my assessment of this patient, this patient meets a high complexity le eddie of care. Leukocytosis: Likely reactive. Monitor fever profile. Urticaria: Benadryl 25 mg IV Q6H PRN. History of diverticulitis s/p Low anterior sigmoid resection: Management per surgery. Discontinue Prednisone. CODE STATUS: FULL CODE. DVT Prophylaxis: Heparin SQ GI Prophylaxis: Designated medical POA if patient is not able to make medical decisions for themselves: I have reviewed the following applications sales consultant notes: Surgery note. I have reviewed the results of the following tests: I have ordered the following tests: I have discussed the care of this patient with the following independent historian: I have independently interpreted the following test below: Objective - Vital Signs Vital signs: Vital Signs Temp 98.2 F 10/01/24 01:34 Pulse 71 10/01/24 01:34 Resp 17 10/01/24 01:34 BP 118/72 10/01/24 01:34 Pulse Ox 92 L 10/01/24 01:34 FiO2 Intake & Output 09/30/24 10/01/24 10/01/24 18:59 06:59 18:59 Intake Total 209.5 Output Total 1900 1950 Balance -1690.5 -1950 Intake: Intake, IV Titration 209.5 Amount Ropivacaine 250 mg 209.5 Hydromorphone (Pf) 5 mg In Sodium Chloride 0.9% 200 ml @ Per Protocol EPIDURAL .Q0M PRN Rx#: [id number] Output: Urine 1900 1950 Other: Voiding Method Indwelling Catheter Indwelling Catheter - Labs CBC & Chem 7: 09/30/24 03:54 09/30/24 03:54 Labs: Abnormal Lab Results - Last 24 Hours (Table) 09/30/24 09/30/24 Range/Units 03:54 03:54 WBC 13.97 H (4.50-10.00) X 10*3/uL Immature Gran # 0.12 H (0.00-0.04) X 10*3/uL Neutrophils # 7.97 H (1.80-7.70) X 10*3/uL Monocytes # 1.83 H (0.20-1.00) X 10*3/uL Eosinophils # 1.55 H (0.04-0.35) X 10*3/uL Basophils # 0.12 H (0.00-0.10) X 10*3/uL Glucose 138 H (70-110) mg/dL
--- NOTE | 2024-10-01 09:38 | P.PN ---
Progress Note - Text Progress Note Date: 10/01/24 As per RN, and patient , epidural catheter was removed on 09/30/2024. He is lying down on the bed comfortably, as per the examinee his pain is well- controlled with IV pain medications. No issues with epidural catheter removal as per RN.
--- NOTE | 2024-10-01 10:37 | P.PN ---
Subjective Progress Note Date: 10/01/24 Principal diagnosis: Diverticulitis Patient is tearful this morning with pain. Apparently went from 2 AM till now without any IV analgesics. Says he was feeling well until he started coughing. He is sitting on the toilet. Feels the urge to have a bowel movement. Vital signs are stable. Morning labs are pending. He is afebrile. Objective - Vital Signs Vital signs: Vital Signs Temp 97.5 F L 10/01/24 06:53 Pulse 87 10/01/24 06:53 Resp 18 10/01/24 06:53 BP 133/87 10/01/24 06:53 Pulse Ox 97 10/01/24 06:53 FiO2 Intake & Output 09/30/24 10/01/24 10/01/24 18:59 06:59 18:59 Intake Total 209.5 Output Total 1900 1950 Balance -1690.5 -1950 Intake: Intake, IV Titration 209.5 Amount Ropivacaine 250 mg 209.5 Hydromorphone (Pf) 5 mg In Sodium Chloride 0.9% 200 ml @ Per Protocol EPIDURAL .Q0M PRN Rx#: [id number] Output: Urine 1899 1949 Other: Voiding Method Indwelling Catheter Indwelling Catheter - Exam Abdomen: Soft, mild tenderness, dressing clean and dry - Labs CBC & Chem 7: 09/30/24 03:54 09/30/24 03:54 Assessment and Plan (1) Diverticulitis Narrative/Plan: 59-year-old male with diverticulitis post sigmoid colectomy. Epidural was remov ed yesterday evening as it did not seem to be functioning properly. He was switched over to IV Dilaudid. He went many hours without any IV narcotics. Will reinitiate those meds now. Some of this pain could be related to starting Entereg with his history of opioid use. Continue clear liquid diet. Increase activity as tolerated. Current Visit: No Status: Acute Code(s): K57.92 - DVTRCLI OF INTEST, PART UNSP, W/O PERF OR ABSCESS W/O BLEED SNOMED Code(s): 877683638
[2024-10-01] MEDS: ALPRAZolam 0.25 MG TAB PO PRN (20:48)
[2024-10-01] MEDS: HYDROmorphone 1 MG/ML 1 ML SYRINGE IVP STA (20:49)
[2024-10-01 21:52] LABS: Basophils # (A) 0.1 k/uL (0-0.2); Basophils % (A) 1 %; Eosinophils # (A) 3.5 k/uL (0-0.7); Eosinophils % (A) 24 %; HCT 46.7 % (39.0-53.0); Lymphocytes # (A) 2.6 k/uL (1.0-4.8); Lymphocytes % (A) 18 %; MCH 27.8 pg (25.0-35.0); Mean Platelet Volume 7.3; Monocytes # (A) 0.9 k/uL (0-1.0); Monocytes % (A) 6 %; Neutrophils % (A) 49 %; Platelet Count 391 k/uL (150-450); RBC 5.37 m/uL (4.30-5.90); WBC 14.3 k/uL (3.8-10.6)
[2024-10-02] MEDS: HYDROmorphone 1 MG/ML 1 ML SYRINGE IVP PRN (01:33)
--- NOTE | 2024-10-02 07:57 | XR ---
Abdomen, 4 view: History: Post colectomy. COMPARISON: None. TECHNIQUE: 4 views the abdomen were obtained including supine and upright views. FINDINGS: There is a small amount of free air beneath the right hemidiaphragm. There is mild atelectasis in the left lung base. There are surgical skin nando in the midline indicating recent surgery. The bowel gas pattern is nonspecific and there is no evidence of obstruction. There is no stool withi n the visualized rectum or descending colon. There is no suspicious abdominal or pelvic calcification. The osseous structures are intact. IMPRESSION: 1. Small amount of free air beneath the right hemidiaphragm. 2. Mild left lower lobe atelectasis. 3. Nonspecific bowel gas pattern. [facility], , 10/02/2024 7:55 AM
[2024-10-02 09:21] LABS: African American GFR (CKD) >90 (>60 ml/min/1.73 sqM); Anion Gap 5 mmol/L; Blood Urea Nitrogen 12 mg/dL (9-20); Calcium 9.1 mg/dL (8.4-10.2); Carbon Dioxide 27 mmol/L (22-30); Chloride 100 mmol/L (98-107); Glucose 240 mg/dL (74-99); Non-African American GFR(CKD) >90 (>60 ml/min/1.73 sqM); Potassium 4.4 mmol/L (3.5-5.1); Sodium 132 mmol/L (137-145)
[2024-10-02 09:23] LABS: HCT 43.6 % (39.0-53.0); HGB 14.2 gm/dL (13.0-17.5); MCH 28.8 pg (25.0-35.0); MCHC 32.5 g/dL (31.0-37.0); MCV 88.6 fL (80.0-100.0); Mean Platelet Volume 7.8; Platelet Count 319 k/uL (150-450); RBC 4.93 m/uL (4.30-5.90); RDW 14.2 % (11.5-15.5); WBC 13.6 k/uL (3.8-10.6)
--- NOTE | 2024-10-02 09:46 | P.PN ---
Subjective Progress Note Date: 10/02/24 Principal diagnosis: Diverticulitis Patient still having intermittent pain that is making him tearful. Does appear more comfortable today than yesterday. Pain seems to be more midline and worse with movement. Abdominal x-ray shows some free air under the right hemidiaphragm. No nausea or vomiting. He did move his bowels 3 separate times. He had 1 episode of tachycardia overnight. Normal heart rate this morning. White blood cell count 14 last night. Objective - Vital Signs Vital signs: Vital Signs Temp 98.2 F 10/02/24 06:57 Pulse 83 10/02/24 06:57 Resp 20 10/02/24 06:57 BP 133/79 10/02/24 06:57 Pulse Ox 92 L 10/02/24 06:57 FiO2 Intake & Output 10/01/24 10/02/24 10/02/24 18:59 06:59 18:59 Output Total 310 Balance -310 Output: Urine 310 Other: # Voids 2 # Bowel Movements 1 - Exam Abdomen: Soft, mild distention, mild to moderate mid abdominal tenderness, dressing clean and dry - Labs CBC & Chem 7: 10/01/24 21:17 10/02/24 08:35 Labs: Abnormal Lab Results - Last 24 Hours (Table) 10/01/24 10/02/24 Range/Units 21:17 08:35 WBC 14.3 H (3.8-10.6) k/uL Eosinophils # 3.5 H (0-0.7) k/uL Sodium 132 L (137-145) mmol/L Glucose 240 H (74-99) mg/dL Assessment and Plan (1) Diverticulitis Narrative/Plan: 59-year-old male with pain after recent sigmoid colectomy. Patient and I discussed options of evaluating his pain with CAT scan. Patient's pain has been like this essentially since the day of surgery. There was obviously no leak seen at the time of surgery when tested. I think anastomotic leak would be a bit unusual given this presentation however to be safe I am recommending CT with rectal contrast. Patient is agreeable. I spoke with CAT scan. Will use one half normal volume of rectal contrast at this time. Patient has moved his bowels today. If CAT scan shows no leak will advance diet. Continue analgesics and anxiolytics. Current Visit: No Status: Acute Code(s): K57.92 - DVTRCLI OF INTEST, PART UNSP, W/O PERF OR ABSCESS W/O BLEED SNOMED Code(s): 053217252
[2024-10-02 10:37] LABS: Eosinophils # (M) 3.67 k/uL (0-0.7); Lymphocytes # (M) 1.63 k/uL (1.0-4.8); Monocytes # (M) 1.22 k/uL (0-1.0); Neutrophils # (M) 7.07 k/uL (1.3-7.7); Neutrophils % (M) 52 %; Nucleated Red Blood Cells 0 /100 WBC (0-0); Total Cells Counted 100
--- NOTE | 2024-10-02 11:22 | CT ---
EXAMINATION TYPE: CT abdomen pelvis w con DATE OF EXAM: 10/02/2024 COMPARISON: 09/12/2024 CLINICAL INDICATION: Male, 59 years old with history of pain; PHH, post op appy/colon rescetion/ look ing for a leak due to extreme abd pain TECHNIQUE: Performed without Oral Contrast and with IV Contrast, patient injected with 100 ml mL of Isovue 300. Bowel contrast was administered through a rectal tube. CT DLP: 752.[address] CTDI: mGy Automated exposure control for dose reduction was used. FINDINGS: There is mild scarring or atelectasis in the lingula and posterior left lung base otherwise the lungs are clear.. The gallbladder is normal without distention, wall thickening, pericholecystic fluid or gallstones. T here is no biliary ductal dilatation. There is no focal mass or organomegaly involving the liver, pancreas, spleen or adrenal glands. There is no solid renal mass or hydronephrosis and there is homogeneous contrast enhancement of the r enal parenchyma. The caliber the abdominal aorta is normal is no retroperitoneal adenopathy or hemorr юлия. The bowel loops are normal in caliber and there is no evidence of dilatation or obstruction. There ar e anastomotic sutures at the rectosigmoid junction. There is no extravasation of contrast but there a re multiple droplets of free intraperitoneal air scattered throughout the abdomen and pelvis. There is a focal area edema/inflammation in the mesentery adjacent to the sigmoid colon. It was seen previously and is stable. There is no discrete abscess.. No pelvic mass, free fluid, abscess or adenopathy. The osseous structures and soft tissues are intact. IMPRESSION: 1. No evidence of contrast extravasation from the rectum or distal sigmoid colon following contrast i njected through a rectal tube. 2. Stable small focus of mesenteric inflammation in the sigmoid colon. No discrete abscess formation. 3. Scattered droplets of free air within the abdomen or pelvis possibly postsurgical in nature [facility], , 10/02/2024 11:20 AM
--- NOTE | 2024-10-02 17:08 | P.PN ---
Subjective Progress Note Date: 10/02/24 59-year-old male with past medical history of diverticulitis who is presenting for elective/scheduled low anterior sigmoid resection. Underwent surgery with Dr. Krueger on 09/29. [facility] [place] Physicians consulted for medical management of this patient. 09/30 Patient was seen and examined. Patient reports 06/01 uncontrolled pain. No nausea or vomiting. Not passing gas. CBC, BMP significant for WBC 13.97, glu 138. 10/01 Patient was seen and examined. Started on CLD. Continued abdominal pain. Not passing gas. No new labs done today. 10/02 Patient was seen and examined. Patient continues to have uncontrolled pain. No nausea or vomiting. Had some urinary retention today requiring Nichole catheter. Had multiple bowel movements so far. CT AP with rectal contrast ordered by surgery showing no evidence of contrast extravasation, small focus of mesenteric inflammation in the sigmoid colon, free air in the abdomen. CBC and BMP significant for WBC 13.6, Na 132, glu 240. General: non toxic, no distress, appears at stated age Derm: warm, dry Head: atraumatic, normocephalic, symmetric Eyes: EOMI, no lid lag, anicteric sclera Mouth: no lip lesion, mucus membranes moist Cardiovascular: S1S2 reg, no murmur Lungs: Clear to auscultation bilaterally, no rhonchi, no rales , no accessory muscle use Neuro: no focal neuro deficits Psych: Alert, oriented, appropriate affect Based on my assessment of this patient, this patient meets a high complexity level of care. Leukocytosis: Likely reactive. Monitor fever profile. Urticaria: Benadryl 25 mg IV Q6H PRN. History of diverticulitis s/p Low anterior sigmoid resection: Management per surgery. Scheduled Oxy IR 10 mg PO BID and added Valium 5 mg IV TID PRN. Discontinue Prednisone. CODE STATUS: FULL CODE. DVT Prophylaxis: Heparin SQ GI Prophylaxis: Designated medical POA if patient is not able to make medical decisions for themselves: I have reviewed the following test consultant notes: Surgery note. I have reviewed the results of the following tests: CBC, BMP, CT AP. I have ordered the following tests: I have discussed the care of this patient with the following independent historian: MARCY. I have independently interpreted the following test below: Objective - Vital Signs Vital signs: Vital Signs Temp 98.0 F 10/02/24 15:12 Pulse 97 11/10/24 15:12 Resp 20 10/02/24 15:12 BP 125/75 10/02/24 15:12 Pulse Ox 95 10/02/24 15:12 FiO2 Intake & Output 10/01/24 10/02/24 10/02/24 18:59 06:59 18:59 Output Total 310 Balance -310 Output: Urine 310 Other: # Voids 2 # Bowel Movements 1 - Labs CBC & Chem 7: 10/02/24 08:35 10/02/24 08:35 Labs: Abnormal Lab Results - Last 24 Hours (Table) 10/01/24 10/02/24 10/02/24 Range/Units 21:17 08:35 08:35 WBC 14.3 H 13.6 H (3.8-10.6) k/uL Monocytes # (Manual) 1.22 H (0-1.0) k/uL Eosinophils # 3.5 H (0-0.7) k/uL Eosinophils # (Manual) 3.67 H (0-0.7) k/uL Sodium 132 L (137-145) mmol/L Glucose 240 H (74-99) mg/dL
[2024-10-02] MEDS: ONDANSETRON 4 MG/2 ML VIAL IVP PRN (21:13)
[2024-10-03] MEDS: HYDROmorphone 1 MG/ML 1 ML SYRINGE IVP PRN (08:26)
--- NOTE | 2024-10-03 09:46 | P.PN ---
Subjective Progress Note Date: 10/03/24 Principal diagnosis: Diverticulitis Patient states he slept most of the night. This morning he is again sitting at the side of the bed tearful stating it hurts when he coughs. Nichole catheter was placed yesterday after some retention issues. Says his abdominal pressure improved after the catheter was placed. He is tolerating clear liquids. He is drinking everything on the tray he states. There is no nausea or vomiting. He has not moved his bowels again since yesterday's CAT scan with rectal contrast. He is afebrile. Had some tachycardia on 2 readings last night back to 90s this morning. Objective - Vital Signs Vital signs: Vital Signs Temp 97.8 F 10/03/24 08:00 Pulse 98 10/03/24 08:00 Resp 18 10/03/24 08:00 BP 100/67 10/03/24 08:00 Pulse Ox 92 L 10/03/24 08:00 FiO2 Intake & Output 10/02/24 10/03/24 10/03/24 18:59 06:59 18:59 Output Total 1300 775 Balance -1300 -775 Output: Urine 1300 775 Other: Voiding Method Indwelling Catheter - Exam Abdomen: Soft, mild distention, mild incisional tenderness, overall tenderness seems improved - Labs CBC & Chem 7: 10/02/24 08:35 10/02/24 08:35 Labs: Abnormal Lab Results - Last 24 Hours (Table) 10/02/24 Range/Units 08:35 WBC 13.6 H (3.8-10.6) k/uL Monocytes # (Manual) 1.22 H (0-1.0) k/uL Eosinophils # (Manual) 3.67 H (0-0.7) k/uL Assessment and Plan (1) Diverticulitis Narrative/Plan: 59-year-old male post sigmoid colectomy. Patient certainly having more than normal postoperative pain. For that reason CAT scan yesterday was performed which shows the anastomosis is patent without leak. Await repeat CBC today. Some of his pain could be related to the Entereg and preoperative use of narcotics. Will advance to full liquids for tomorrow breakfast. Keep Nichole catheter in place today. Add Toradol back on for pain control. Ambulate as tolerated. Monitor for tachycardia. Current Visit: No Status: Acute Code(s): K57.92 - DVTRCLI OF INTEST, PART UNSP, W/O PERF OR ABSCESS W/O BLEED SNOMED Code(s): 739379177
[2024-10-03 09:50] LABS: HCT 43.4 % (39.6-50.0); HGB 13.9 g/dL (13.0-17.0); MCH 28.1 pg (27.0-32.0); MCV 87.9 FL (80.0-97.0); Mean Platelet Volume 10.2 FL (9.5-12.2); NRBC Per 100 WBC 0 X 10*3/uL (0.00-0.01); Platelet Count 315 X 10*3/uL (140-440); RBC 4.94 X 10*6/uL (4.40-5.60); WBC 13.95 X 10*3/uL (4.50-10.00)
[2024-10-03 09:51] LABS: Basophils % (A) 0.7 %; Eosinophils % (A) 2.2 %; Lymphocytes % (A) 16.5 %; Monocytes # (A) 1.61 X 10*3/uL (0.20-1.00); Monocytes % (A) 11.5 %; Neutrophils # (A) 9.53 X 10*3/uL (1.80-7.70); Neutrophils % (A) 68.3 %
--- NOTE | 2024-10-03 10:02 | XR ---
EXAMINATION TYPE: XR chest 1V portable DATE OF EXAM: 10/03/2024 9:55 AM COMPARISON: None CLINICAL INDICATION: Male, 59 years old with history of Hypoxia; TECHNIQUE: XR chest 1V portable Frontal view of the chest. FINDINGS: Lungs/Pleura: There is no evidence of pleural effusion, focal consolidation, or pneumothorax. Pulmonary vascularity: Unremarkable. Heart/mediastinum: Cardiomediastinal silhouette is unremarkable. Musculoskeletal: No acute osseous pathology. IMPRESSION: No acute cardiopulmonary disease/process. [facility], , 10/03/2024 9:59 AM
[2024-10-03 10:39] LABS: Basophils % (A) 0 %; Eosinophils # (A) 3.1 k/uL (0-0.7); Eosinophils % (A) 23 %; HCT 50.7 % (39.0-53.0); HGB 16.6 gm/dL (13.0-17.5); Lymphocytes # (A) 1.7 k/uL (1.0-4.8); Lymphocytes % (A) 12 %; MCH 28.5 pg (25.0-35.0); MCHC 32.7 g/dL (31.0-37.0); Mean Platelet Volume 7.4; Monocytes # (A) 0.7 k/uL (0-1.0); Monocytes % (A) 5 %; Neutrophils # (A) 7.8 k/uL (1.3-7.7); Neutrophils % (A) 58 %; Platelet Count 318 k/uL (150-450); RBC 5.83 m/uL (4.30-5.90); RDW 14.1 % (11.5-15.5); WBC 13.5 k/uL (3.8-10.6)
[2024-10-03] MEDS: KETOROLAC 15 MG/ML 1 ML VIAL IVP SCH (11:12)
--- NOTE | 2024-10-03 12:06 | P.PN ---
Subjective Progress Note Date: 10/03/24 59-year-old male with past medical history of diverticulitis who is presenting for elective/scheduled low anterior sigmoid resection. Underwent surgery with Dr. Krueger on 09/29. [facility] consulted for medical management of this patient. He had issues with uncontrolled pain. Repeat CT was performed with rectal contrast on 10/02 which showed no evidence of contrast extravasation, small focus of mesenteric inflammation in the sigmoid colon, free air in the abdomen. 10/03 Patient was seen and examined. Patient continues to have uncontrolled pain. No nausea or vomiting. Had some urinary retention today requiring Nichole catheter. Had multiple bowel movements so far. CBC shows WBC 13.5. He was hypo xic this morning to 88%. CXR was ordered which shows no acute process. General: non toxic, no distress, appears at stated age Derm: warm, dry Head: atraumatic, normocephalic, symmetric Eyes: EOMI, no lid lag, anicteric sclera Mouth: no lip lesion, mucus membranes moist Cardiovascular: S1S2 reg, no murmur Lungs: Clear to auscultation bilaterally, no rhonchi, no rales , no accessory muscle use Neuro: no focal neuro deficits Psych: Alert, oriented, appropriate affect + Nichole catheter Based on my assessment of this patient, this patient meets a high complexity level of care. Hypoxia: CXR negative. I ordered an incentive spirometer. Leukocytosis: Likely reactive. No signs of active infection. Monitor fever profile. Urticaria: Benadryl 25 mg IV Q6H PRN. History of diverticulitis s/p Low anterior sigmoid resection by Dr. Krueger on 09/29: Management per surgery. CODE STATUS: FULL CODE. DVT Prophylaxis: Heparin SQ GI Prophylaxis: Designated medical POA if patient is not able to make medical decisions for themselves: I have reviewed the following travel consultant notes: Surgery note I have reviewed the results of the following tests: CBC I have ordered the following tests: I have discussed the care of this patient with the following independent historian: I have independently interpreted the following test below: CXR Objective - Vital Signs Vital signs: Vital Signs Temp 97.8 F 10/03/24 08:00 Pulse 98 10/03/24 08:00 Resp 18 10/03/24 08:00 BP 100/67 10/03/24 08:00 Pulse Ox 92 L 10/03/24 08:00 FiO2 Intake & Output 10/02/24 10/03/24 10/03/24 18:59 06:59 18:59 Output Total 1300 775 Balance -1300 -775 Output: Urine 1300 775 Other: Voiding Method Indwelling Catheter Indwelling Catheter - Labs CBC & Chem 7: 10/03/24 10:14 10/02/24 08:35 Labs: Abnormal Lab Results - Last 24 Hours (Table) 10/01/24 10/03/24 Range/Units 03:48 10:14 WBC 13.95 H 13.5 H (4.50-10.00) X 10*3/uL Immature Gran # 0.11 H (0.00-0.04) X 10*3/uL Neutrophils # 9.53 H 7.8 H (1.80-7.70) X 10*3/uL Monocytes # 1.61 H (0.20-1.00) X 10*3/uL Eosinophils # 3.1 H (0-0.7) k/uL
[2024-10-04 09:55] LABS: Basophils # (M) 0 X 10*3/uL (0.00-0.10); Eosinophils # (M) 2.91 X 10*3/uL (0.04-0.35); HCT 43.7 % (39.6-50.0); HGB 14.5 g/dL (13.0-17.0); Lymphocytes # (M) 1.62 X 10*3/uL (0.90-5.00); MCH 28.7 pg (27.0-32.0); MCHC 33.2 g/dL (32.0-37.0); MCV 86.4 FL (80.0-97.0); Mean Platelet Volume 10.7 FL (9.5-12.2); Monocytes # (M) 1.08 X 10*3/uL (0.20-1.00); NRBC Per 100 WBC 0 X 10*3/uL (0.00-0.01); Neutrophils # (M) 4.96 X 10*3/uL (1.80-7.70); Neutrophils % (M) 46 %; Platelet Count 303 X 10*3/uL (140-440); Promyelocytes # (M) 0.11 k/uL (0); Promyelocytes % 1 %; RBC 5.06 X 10*6/uL (4.40-5.60); WBC 10.79 X 10*3/uL (4.50-10.00)
[2024-10-04 09:56] LABS: Myelocytes % 1 % (0-0)
--- NOTE | 2024-10-04 11:08 | P.PN ---
Subjective Progress Note Date: 10/04/24 Patient was seen this morning. He states that he had a large bowel movement. He states that his pain is better this morning. He is also on room air. Patient was also seen walking around in his room. 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 Patient stable for discharge from medical standpoint. Objective - Vital Signs Vital signs: Vital Signs Temp 98.1 F 10/04/24 06:53 Pulse 89 10/04/24 06:53 Resp 16 10/04/24 06:53 BP 118/70 10/04/24 06:53 Pulse Ox 94 L 10/04/24 06:53 FiO2 Intake & Output 10/03/24 10/04/24 10/04/24 18:59 06:59 18:59 Output Total 300 300 Balance -300 -300 Output: Urine 300 300 Other: Voiding Method Indwelling Catheter Indwelling Catheter # Voids 1 - Labs CBC & Chem 7: 10/04/24 03:26 10/02/24 08:35 Labs: Abnormal Lab Results - Last 24 Hours (Table) 10/04/24 Range/Units 03:26 WBC 10.79 H (4.50-10.00) X 10*3/uL Monocytes # (Manual) 1.08 H (0.20-1.00) X 10*3/uL Eosinophils # (Manual) 2.91 H (0.04-0.35) X 10*3/uL
[2024-10-04 12:00] LABS: Blood Urea Nitrogen 14.1 mg/dL (9.0-27.0); Calcium 8.6 mg/dL (8.7-10.3); Carbon Dioxide 23.7 mmol/L (21.6-31.8); Chloride 99 mmol/L (96-109); Glucose 161 mg/dL (70-110); Potassium 4.5 mmol/L (3.5-5.5); Sodium 133 mmol/L (135-145)
--- NOTE | 2024-10-04 14:21 | P.PN ---
Subjective Progress Note Date: 10/04/24 SURGICAL PROGRESS NOTE CHIEF COMPLAINT: Diverticulitis HISTORY OF PRESENT ILLNESS: Patient postop day #5 status post lower anterior sigmoid resection. Patient reports he is feeling better today. Pain is less than yesterday. Nichole catheter discontinued today. Patient reports having a bowel movement and flatus. Patient reports pain decreased after the bowel movement. Afebrile. Tachycardia resolved. WBC is down from 13-10.7 PHYSICAL EXAM: VITAL SIGNS: Reviewed. GENERAL: Well-developed in no acute distress. ABDOMEN: Soft. Nondistended. Incisional dressing clean dry and intact, minimal tenderness at incision site NEUROLOGIC: Alert and oriented. Cranial nerves II through XII grossly intact. ASSESSMENT: 1. Diverticulitis PLAN: -Continue full liquid diet -Monitor for urinary retention -Encourage patient to ambulate -Continue pain management -Encourage patient to use incentive spirometer -GI prophylaxis Pepcid and DVT prophylaxis subcu heparin Physician Strategic Planning Director note has been reviewed by physician. Signing provider agrees with the documented findings, assessment, and plan of care. I have personally seen and examined the patient, reviewed the BIOINFORMATICS SOFTWARE ENGINEER /PAs history, exam and MDM and agree with the assessment and plan as written. Based on total visit time, I have performed more than 50% of the visit. As above: Patient says he feels better today. Has had multiple bowel movements. Has pain only at the midline incision near the umbilicus at this time. No more tachycardia. White blood cell count is improved. Advance diet. Possible discharge tomorrow if tolerating. Objective - Vital Signs Vital signs: Vital Signs Temp 98.1 F 10/04/24 13:08 Pulse 81 10/04/24 13:08 Resp 17 10/04/24 13:08 BP 124/83 10/04/24 13:08 Pulse Ox 98 10/04/24 13:08 FiO2 Intake & Output 10/03/24 10/04/24 10/04/24 18:59 06:59 18:59 Output Total 300 300 300 Balance -300 -300 -300 Output: Urine 300 300 300 Other: Voiding Method Indwelling Catheter Indwelling Catheter # Voids 1 - Labs CBC & Chem 7: 10/04/24 03:26 10/04/24 03:26 Labs: Abnormal Lab Results - Last 24 Hours (Table) 10/04/24 10/04/24 Range/Units 03:26 03:26 WBC 10.79 H (4.50-10.00) X 10*3/uL Monocytes # (Manual) 1.08 H (0.20-1.00) X 10*3/uL Eosinophils # (Manual) 2.91 H (0.04-0.35) X 10*3/uL Sodium 133 L (135-145) mmol/L Glucose 161 H (70-110) mg/dL Calcium 8.6 L (8.7-10.3) mg/dL
--- NOTE | 2024-10-05 12:16 | P.PN ---
Subjective Progress Note Date: 10/05/24 Patient was seen this morning. He states that he had a large bowel movement. He states that today he is felt the best compared to the rest of the days while he was in the hospital. He denies abdominal pain. He is looking forward to going home. 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 Patient stable for discharge from medical standpoint. Medication reconciliation completed. Will defer pain meds to primary team. Medicine service will sign off. Objective - Vital Signs Vital signs: Vital Signs Temp 98 F 10/05/24 07:58 Pulse 93 10/05/24 07:58 Resp 16 10/05/24 07:58 BP 128/82 10/05/24 07:58 Pulse Ox 98 10/05/24 07:58 FiO2 Intake & Output 10/04/24 10/05/24 10/05/24 18:59 06:59 18:59 Output Total 300 Balance -300 Output: Urine 300 Other: Voiding Method Toilet Toilet # Voids 2 - Labs CBC & Chem 7: 10/04/24 03:26 10/04/24 03:26
--- NOTE | 2024-10-05 12:27 | P.DS ---
Providers Date of admission: 09/29/24 10:39 Expected date of discharge: 10/05/24 Attending physician: Wade Krueger Consults: 09/29/24 15:09 Consult Physician Routine Consulting Provider: Jay Guzman Consult Reason/Comments: Medical management Do you want consulting provider notified?: Yes Primary care physician: Griselda Dutton MD Hospital Course: Discharge diagnosis 1. Diverticulitis Hospital course This is a 59-year-old male with a known history of diverticulitis status post lower anterior resection. Patient tolerated surgery well. His pain is controlled. He is tolerating diet. He has been up and ambulating. He is afebrile. He is having bowel movements. He is stable for discharge. Please refer to chart for any further details. Physician Garage Door Opener Installer note has been reviewed by physician. Signing provider agrees with the documented findings, assessment, and plan of care. Patient Condition at Discharge: Stable Plan - Discharge Summary New Discharge Prescriptions: New oxyCODONE HCL [OxyIR] 10 mg PO Q8H PRN 3 Days #18 tab PRN Reason: Pain Continue diphenhydrAMINE [Benadryl] 50 mg PO TID #30 capsule Famotidine [Pepcid] 40 mg PO BID #28 tablet hydrOXYzine HCL [Atarax] 25 mg PO TID PRN #15 tab PRN Reason: Itching Discontinued oxyCODONE HCL [Roxicodone] 10 mg PO BID PRN PRN Reason: Pain predniSONE 50 mg PO DAILY #5 tab Discharge Medication List Famotidine [Pepcid] 40 mg PO BID #28 tablet 09/25/24 [Rx] diphenhydrAMINE [Benadryl] 50 mg PO TID #30 capsule 09/25/24 [Rx] hydrOXYzine HCL [Atarax] 25 mg PO TID PRN #15 tab 09/25/24 [Rx] oxyCODONE HCL [OxyIR] 10 mg PO Q8H PRN 3 Days #18 tab 10/05/24 [Rx] Follow up Appointment(s)/Referral(s): Wade Krueger MD [Medical Doctor] - 1 Week Activity/Diet/Wound Care/Special Instructions: No driving while taking OxyIR No lifting over 10 pounds You may shower. No soaking or tub baths for 2 weeks Very light activity until you are reevaluated at your follow up appointment with your surgeon Discharge Disposition: HOME SELF-CARE
[2024-10-05 13:49] VITALS: BP 140/83; PULSE 108; RESP 18; TEMP 97.8
== END 2024-10-05 13:49 | disposition home or self-care (01) | DRG 231 ==
LOC: 2ORMAIN 10:39 → 4SSUR 14:58
PROVIDERS: ADMIT Surgery; ATTEND Surgery
PROC: 0DTN0ZZ Resection of Sigmoid Colon, Open Approach (ICD-10-PCS; principal; 2024-09-29 12:30)
DX: K57.32 Diverticulitis of large intestine without perforation or abscess without bleeding (principal); D72.829 Elevated white blood cell count, unspecified; R09.02 Hypoxemia; L50.9 Urticaria, unspecified; F17.200 Nicotine dependence, unspecified, uncomplicated; R33.9 Retention of urine, unspecified; R00.0 Tachycardia, unspecified; Z86.61 Personal history of infections of the central nervous system; Z79.899 Other long term (current) drug therapy; Z79.52 Long term (current) use of systemic steroids; Z79.891 Long term (current) use of opiate analgesic
CPT/HCPCS: 71045; 74019; 74177; 80048; 85025; 86850; 86900; 86901; 88302; 88307